=== PATIENT | male | born 1960 | race Caucasian/White ===

== ENCOUNTER 2021-06-08 06:58 | Inpatient (IN) ==
[2021-06-08] MEDS ORDERED: 0.9 % SODIUM CHLORIDE 1,000 ML IV ONE ×2 (07:03→09:34)
--- NOTE | 2021-06-08 07:45 | Emergency Department Note ---
HPI General Chief complaint: Weakness Stated complaint: Weakness Time Seen by Provider: 06/08/21 07:03 Source: EMS Mode of arrival: EMS Limitations: no limitations History of Present Illness HPI Narrative: Patient is a 60-year-old gentleman who arrives emergency department accompanied by his brother complaining of generalized weakness. History is provided by the patient and his brother as well as review of his mn dical records and his limited as the patient is a very vague historian. Patient dislocated his clavicle on the 12th of the month. He was seen at [facility] and the diagnosis was made. He was given follow-up with Dr. Del Rio but has not been able to follow-up yet. Ever since the injury, the patient has been having progressively worsening generalized weakness. He wa s seen at [facility] yesterday and discharged after symptomatic treatment for his clavicle pain. Today, he was feeling so weak he could not get off of the toilet this morning. His brother then called 911 and he was brought to the emergency department for further evaluation. Nothing seems to make his symptoms any better or worse. Related Data Allergies Allergy/AdvReac Type Severity Reaction Status Date / Time No Known Drug Allergies Allergy Unverified 06/08/21 06:58 Review of Systems ROS ROS Narrative: Narrative: All systems ED: reviewed and negative except as stated. Constitutional: Denies fever and chills Cardiovascular: Denies chest pain Respiratory: Denies shortness of breath and cough PFSH Narrative Patient History Narrative: Narrative: Medical/Surgical/Family History All Active Problems (Updated 06/08/21 @ 14:41 by Mandeep Rothman DO) Hypokalemia (Acute) Acute hyponatremia (Acute) Fever (Acute) QT prolongation (Acute) Social History Smoking Status: Current every day smoker Alcohol Intake Frequency: former alcohol drinker (Patient is very vague when describing his alcohol intake but states he has not had any alcohol in 3 or 4 days.) Substance Use: does not use Exam Narrative Narrative: I reviewed the vital signs. Gen -patient is awake and alert and in no acute distress. Patient appears disheveled. HEENT -head is atraumatic. There is no conjunctival pallor or scleral icterus. Mucous membranes are moist. CV -S1-S2 regular rate and rhythm. Peripheral pulses are palpable. There is no JVD. Resp -breathing is nonlabored. Lungs are clear to auscultation bilaterally. There is no cyanosis. GI - Abdomen is soft and nontender to palpation. There is no guarding or rebound tenderness. Derm -skin is warm and diaphoretic. There is no visible rash. MSK -there is edema and tenderness over the right clavicle with palpable deformity that feels consistent with an anterior clavicle dislocation. Psych -patient has a labile affect. The patient does not appear internally stimulated. Neuro -patient provides a vague but generally appropriate answers to questions. He has significant dysarthria that seems suggestive of alcohol intoxication. There is no aphasia. There is no facial muscular asymmetry. Muscle strength is 5 out of 5 in bilateral upper extremities and 4 out of 5 in bilateral lower extremities. Patient has difficulty comprehending more complex commands for cerebellar testing but ordination appears grossly intact. There is horizontal nystagmus. Extraocular motion is intact. Patient moves all present extremities equally. General Limitations: no limitations Course Vital Signs Vital signs: Vital Signs Temperature 97.4 F 06/08/21 06:59 Pulse Rate 90 06/08/21 06:59 Respiratory Rate 16 06/08/21 06:59 Blood Pressure 125/72 06/08/21 06:59 Pulse Oximetry (%) 98 06/08/21 06:59 Temperature 97.7 F 06/08/21 13:35 Pulse Rate 99 H 06/08/21 11:01 Respiratory Rate 22 06/08/21 14:01 Blood Pressure 104/58 06/08/21 14:01 Pulse Oximetry (%) 98 06/08/21 11:01 [facility] Narrative Medical decision making narrative: Patient presents with several days of generalized weakness. He is not of any focal findings or complaints concerning for ischemic stroke or other space-occupying lesion. Labs remarkable for significant hyponatremia as well as hypokalemia and a leukocytosis. Further conversation with his brother reveals that the patient drinks beer quite heavily which I think is the cause of his hyponatremia. I discussed the test results with the patient and his family. He is agreeable with the plan for hospital admission for gradual correction of his sodium. There was an extremely long wait for an inpatient bed so I did recheck his sodium after a liter of IV fluids been administered. This does not appear to be precipitously rising so we will continue gradual hydration in the emergency department. Patient does have a leukocytosis but no focal source of infection is obvious on exam or history. I considered the possibility of meningitis but he does not have a headache or display any nuchal rigidity on exam. I think the most likely source of his fever would be an occult pneumonia so we will treat empirically with Rocephin and closely monitor for other signs of infectious symptoms. I discussed the patient's history examination and diagnostic findings with Dr. Mendoza, who agrees with the plan of care and accepts admission. Critical care time I provided 35 minutes of critical care time. This was in addition to any separately billable procedures. The patient was was given fluids very judiciously to correct his hyponatremia and his response was closely monitored for signs of overzealous correction which could lead to central pontine myelinolysis. He was given IV potassium and magnesium to treat his hypokalemia in the setting of QT prolongation on his EKG in order to prevent cardiac dysrhythmia. The patient was closely monitored for response to treatment and stability of vital signs throughout their emergency department stay. Lab Data Lab results reviewed: Yes I reviewed the patient's lab results. Result diagrams: 06/08/21 07:51 06/08/21 07:51 Labs: Lab Results 06/08/21 06/08/21 06/08/21 Range/Units 07:35 07:50 07:50 WBC (4.5-11.0) K/mcL RBC (4.63-6.08) M/mcL Hgb (13.7-17.5) g/dL Hct (40.1-51.0) % POC Hct (41-55) % MCV (80.0-100.0) fL MCH (26.0-34.0) pg MCHC (31.0-36.0) g/dL RDW (11.5-14.5) % Plt Count (140-440) K/mcL MPV (7.4-10.4) fL Neut % (Auto) (38.0-78.0) % Lymph % (Auto) (15.5-49.0) % [place] % (Auto) (1.0-12.0) % Eos % (Auto) (0.0-7.0) % Baso % (Auto) (0.0-2.0) % Lymph # (Auto) (1.50-4.80) K/mcL [place] # (Auto) (0.10-0.90) K/mcL Eos # (Auto) (0.00-0.70) K/mcL Baso # (Auto) (0.00-0.30) K/mcL Absolute Neutrophils (1.80-8.00) K/mcL PT (11.9-14.5) sec INR (0.9-1.1) ABG Methemoglobin 0.3 L (0.4-1.5) % VBG pH 7.47 H (7.32-7.42) U VBG pCO2 37.4 L (41.0-51.0) mmHg VBG pO2 39.6 (25.0-40.0) mmHg VBG HCO3 26.7 (24.0-28.0) mmol/L VBG Total CO2 27.8 (25.0-29.0) mmol/L VBG O2 Saturation 67.9 (40.0-70.0) % VBG Base Excess 3 (-2-3) VBG Lactic Acid (0.5-2.0) mmol/L Carboxyhemoglobin 6.9 H (0.0-1.5) % THgb Total Hemoglobin 14.0 (13.5-16.5) gm/Dl POC Sodium (133-145) mEq/L Sodium (133-145) mmol/L POC Potassium (3.3-5.1) mEql/L Potassium (3.3-5.1) mmol/L POC Chloride (96-108) mEq/L Chloride (96-108) mmol/L Carbon Dioxide (22-30) mmol/L POC Total CO2 (22-30) mmol/L Anion Gap (8.0-16.0) POC BUN (6-20) mg/dL BUN (6-20) mg/dL Creatinine (0.7-1.2) mg/dL POC Creatinine (0.6-1.2) mg/dL GFR Calculation Glucose (70-105) mg/dL POC Glucose (70-105) mg/dL Calcium (8.6-10.4) mg/dL POC WB Ioniz Calcium (1.16-1.32) mmEq/L Total Bilirubin (0.1-1.0) mg/dL AST (<40) U/L ALT (<40) U/L Alkaline Phosphatase (39-117) U/L Ammonia (16-60) umol/L Total Protein (5.9-8.4) gm/dL Albumin (3.2-5.2) gm/dL Globulin (2.2-3.7) gm/dL Albumin/Globulin Ratio (1.0-2.3) Urine Color Urine Appearance (Clear) Urine pH (5.0-9.0) Ur Specific [place] (1.000-1.035) Urine Protein (Negative) mg/dL Urine Glucose (UA) (Negative) mg/dL Urine Ketones (Negative) mg/dL Urine Occult Blood (Negative) mg/dL Urine Nitrate (Negative) Urine Bilirubin (Negative) mg/dL Urine Urobilinogen mg/dL Ur Leukocyte Esterase (Negative) /ug Urine RBC (0-3) /hpf Urine WBC (0-4) /hpf Ur Squamous Epith Cells (0-4) /hpf Ur Transition Epith Cell (0-2) /hpf Urine Bacteria (0) /hpf Urine Mucus (None) /hpf Ur Culture Indicated? Salicylates < 0.3 mg/dL Acetaminophen ug/mL Ethyl Alcohol < 0.010 (<0.010) gm/dL 06/08/21 06/08/21 06/08/21 Range/Units 07:50 07:50 07:51 WBC 28.6 H (4.5-11.0) K/mcL RBC 4.29 L (4.63-6.08) M/mcL Hgb 14.5 (13.7-17.5) g/dL Hct 38.9 L (40.1-51.0) % POC Hct (41-55) % MCV 90.7 (80.0-100.0) fL MCH 33.8 (26.0-34.0) pg MCHC 37.3 H (31.0-36.0) g/dL RDW 12.4 (11.5-14.5) % Plt Count 202 (140-440) K/mcL MPV 9.9 (7.4-10.4) fL Neut % (Auto) 87.1 H (38.0-78.0) % Lymph % (Auto) 3.5 L (15.5-49.0) % [place] % (Auto) 9.3 (1.0-12.0) % Eos % (Auto) 0 (0.0-7.0) % Baso % (Auto) 0.1 (0.0-2.0) % Lymph # (Auto) 1.01 L (1.50-4.80) K/mcL [place] # (Auto) 2.65 H (0.10-0.90) K/mcL Eos # (Auto) 0.01 (0.00-0.70) K/mcL Baso # (Auto) 0.03 (0.00-0.30) K/mcL Absolute Neutrophils 24.92 H (1.80-8.00) K/mcL PT 14.4 (11.9-14.5) sec INR 1.1 (0.9-1.1) ABG Methemoglobin (0.4-1.5) % VBG pH (7.32-7.42) U VBG pCO2 (41.0-51.0) mmHg VBG pO2 (25.0-40.0) mmHg VBG HCO3 (24.0-28.0) mmol/L VBG Total CO2 (25.0-29.0) mmol/L VBG O2 Saturation (40.0-70.0) % VBG Base Excess (-2-3) VBG Lactic Acid (0.5-2.0) mmol/L Carboxyhemoglobin (0.0-1.5) % THgb Total Hemoglobin (13.5-16.5) gm/Dl POC Sodium (133-145) mEq/L Sodium (133-145) mmol/L POC Potassium (3.3-5.1) mEql/L Potassium (3.3-5.1) mmol/L POC Chloride (96-108) mEq/L Chloride (96-108) mmol/L Carbon Dioxide (22-30) mmol/L POC Total CO2 (22-30) mmol/L Anion Gap (8.0-16.0) POC BUN (6-20) mg/dL BUN (6-20) mg/dL Creatinine (0.7-1.2) mg/dL POC Creatinine (0.6-1.2) mg/dL GFR Calculation Glucose (70-105) mg/dL POC Glucose (70-105) mg/dL Calcium (8.6-10.4) mg/dL POC WB Ioniz Calcium (1.16-1.32) mmEq/L Total Bilirubin (0.1-1.0) mg/dL AST (<40) U/L ALT (<40) U/L Alkaline Phosphatase (39-117) U/L Ammonia 11 L (16-60) umol/L Total Protein (5.9-8.4) gm/dL Albumin (3.2-5.2) gm/dL Globulin (2.2-3.7) gm/dL Albumin/Globulin Ratio (1.0-2.3) Urine Color Urine Appearance (Clear) Urine pH (5.0-9.0) Ur Specific [place] (1.000-1.035) Urine Protein (Negative) mg/dL Urine Glucose (UA) (Negative) mg/dL Urine Ketones (Negative) mg/dL Urine Occult Blood (Negative) mg/dL Urine Nitrate (Negative) Urine Bilirubin (Negative) mg/dL Urine Urobilinogen mg/dL Ur Leukocyte Esterase (Negative) /ug Urine RBC (0-3) /hpf Urine WBC (0-4) /hpf Ur Squamous Epith Cells (0-4) /hpf Ur Transition Epith Cell (0-2) /hpf Urine Bacteria (0) /hpf Urine Mucus (None) /hpf Ur Culture Indicated? Salicylates mg/dL Acetaminophen ug/mL Ethyl Alcohol (<0.010) gm/dL 06/08/21 06/08/21 06/08/21 Range/Units 07:51 07:51 07:51 WBC (4.5-11.0) K/mcL RBC (4.63-6.08) M/mcL Hgb (13.7-17.5) g/dL Hct (40.1-51.0) % POC Hct 47 (41-55) % MCV (80.0-100.0) fL MCH (26.0-34.0) pg MCHC (31.0-36.0) g/dL RDW (11.5-14.5) % Plt Count (140-440) K/mcL MPV (7.4-10.4) fL Neut % (Auto) (38.0-78.0) % Lymph % (Auto) (15.5-49.0) % [place] % (Auto) (1.0-12.0) % Eos % (Auto) (0.0-7.0) % Baso % (Auto) (0.0-2.0) % Lymph # (Auto) (1.50-4.80) K/mcL [place] # (Auto) (0.10-0.90) K/mcL Eos # (Auto) (0.00-0.70) K/mcL Baso # (Auto) (0.00-0.30) K/mcL Absolute Neutrophils (1.80-8.00) K/mcL PT (11.9-14.5) sec INR (0.9-1.1) ABG Methemoglobin (0.4-1.5) % VBG pH (7.32-7.42) U VBG pCO2 (41.0-51.0) mmHg VBG pO2 (25.0-40.0) mmHg VBG HCO3 (24.0-28.0) mmol/L VBG Total CO2 (25.0-29.0) mmol/L VBG O2 Saturation (40.0-70.0) % VBG Base Excess (-2-3) VBG Lactic Acid 2.4 H (0.5-2.0) mmol/L Carboxyhemoglobin (0.0-1.5) % THgb Total Hemoglobin (13.5-16.5) gm/Dl POC Sodium 120 L (133-145) mEq/L Sodium 119 L* (133-145) mmol/L POC Potassium 3.1 L (3.3-5.1) mEql/L Potassium 3.2 L (3.3-5.1) mmol/L POC Chloride 82 L (96-108) mEq/L Chloride 80 L (96-108) mmol/L Carbon Dioxide 26 (22-30) mmol/L POC Total CO2 25 (22-30) mmol/L Anion Gap 13.0 (8.0-16.0) POC BUN 43 H (6-20) mg/dL BUN 42 H (6-20) mg/dL Creatinine 1.0 (0.7-1.2) mg/dL POC Creatinine 0.9 (0.6-1.2) mg/dL GFR Calculation 81 Glucose 120 H (70-105) mg/dL POC Glucose 121 H (70-105) mg/dL Calcium 8.1 L (8.6-10.4) mg/dL POC WB Ioniz Calcium 0.92 L (1.16-1.32) mmEq/L Total Bilirubin 1.7 H (0.1-1.0) mg/dL AST 136 H (<40) U/L ALT 74 H (<40) U/L Alkaline Phosphatase 122 H (39-117) U/L Ammonia (16-60) umol/L Total Protein 6.3 (5.9-8.4) gm/dL Albumin 2.2 L (3.2-5.2) gm/dL Globulin 4.1 H (2.2-3.7) gm/dL Albumin/Globulin Ratio 0.5 L (1.0-2.3) Urine Color Urine Appearance (Clear) Urine pH (5.0-9.0) Ur Specific [place] (1.000-1.035) Urine Protein (Negative) mg/dL Urine Glucose (UA) (Negative) mg/dL Urine Ketones (Negative) mg/dL Urine Occult Blood (Negative) mg/dL Urine Nitrate (Negative) Urine Bilirubin (Negative) mg/dL Urine Urobilinogen mg/dL Ur Leukocyte Esterase (Negative) /ug Urine RBC (0-3) /hpf Urine WBC (0-4) /hpf Ur Squamous Epith Cells (0-4) /hpf Ur Transition Epith Cell (0-2) /hpf Urine Bacteria (0) /hpf Urine Mucus (None) /hpf Ur Culture Indicated? Salicylates mg/dL Acetaminophen < 5.0 ug/mL Ethyl Alcohol (<0.010) gm/dL 06/08/21 06/08/21 06/08/21 Range/Units 11:00 12:09 13:32 WBC (4.5-11.0) K/mcL RBC (4.63-6.08) M/mcL Hgb (13.7-17.5) g/dL Hct (40.1-51.0) % POC Hct 45 38 L (41-55) % MCV (80.0-100.0) fL MCH (26.0-34.0) pg MCHC (31.0-36.0) g/dL RDW (11.5-14.5) % Plt Count (140-440) K/mcL MPV (7.4-10.4) fL Neut % (Auto) (38.0-78.0) % Lymph % (Auto) (15.5-49.0) % [place] % (Auto) (1.0-12.0) % Eos % (Auto) (0.0-7.0) % Baso % (Auto) (0.0-2.0) % Lymph # (Auto) (1.50-4.80) K/mcL [place] # (Auto) (0.10-0.90) K/mcL Eos # (Auto) (0.00-0.70) K/mcL Baso # (Auto) (0.00-0.30) K/mcL Absolute Neutrophils (1.80-8.00) K/mcL PT (11.9-14.5) sec INR (0.9-1.1) ABG Methemoglobin (0.4-1.5) % VBG pH (7.32-7.42) U VBG pCO2 (41.0-51.0) mmHg VBG pO2 (25.0-40.0) mmHg VBG HCO3 (24.0-28.0) mmol/L VBG Total CO2 (25.0-29.0) mmol/L VBG O2 Saturation (40.0-70.0) % VBG Base Excess (-2-3) VBG Lactic Acid (0.5-2.0) mmol/L Carboxyhemoglobin (0.0-1.5) % THgb Total Hemoglobin (13.5-16.5) gm/Dl POC Sodium 122 L 123 L (133-145) mEq/L Sodium (133-145) mmol/L POC Potassium 3.1 L 2.9 L* (3.3-5.1) mEql/L Potassium (3.3-5.1) mmol/L POC Chloride 87 L 86 L (96-108) mEq/L Chloride (96-108) mmol/L Carbon Dioxide (22-30) mmol/L POC Total CO2 23 22 (22-30) mmol/L Anion Gap (8.0-16.0) POC BUN 38 H 36 H (6-20) mg/dL BUN (6-20) mg/dL Creatinine (0.7-1.2) mg/dL POC Creatinine 0.7 0.8 (0.6-1.2) mg/dL GFR Calculation Glucose (70-105) mg/dL POC Glucose 109 H 118 H (70-105) mg/dL Calcium (8.6-10.4) mg/dL POC WB Ioniz Calcium 0.90 L 0.97 L (1.16-1.32) mmEq/L Total Bilirubin (0.1-1.0) mg/dL AST (<40) U/L ALT (<40) U/L Alkaline Phosphatase (39-117) U/L Ammonia (16-60) umol/L Total Protein (5.9-8.4) gm/dL Albumin (3.2-5.2) gm/dL Globulin (2.2-3.7) gm/dL Albumin/Globulin Ratio (1.0-2.3) Urine Color Rachel Urine Appearance Hazy A (Clear) Urine pH 6.0 (5.0-9.0) Ur Specific [place] 1.019 (1.000-1.035) Urine Protein 30 A (Negative) mg/dL Urine Glucose (UA) Negative (Negative) mg/dL Urine Ketones Negative (Negative) mg/dL Urine Occult Blood 0.20 (Negative) mg/dL Urine Nitrate Negative (Negative) Urine Bilirubin Negative (Negative) mg/dL Urine Urobilinogen 4.0 A mg/dL Ur Leukocyte Esterase 75 A (Negative) /ug Urine RBC 3 (0-3) /hpf Urine WBC 39 H (0-4) /hpf Ur Squamous Epith Cells < 1 (0-4) /hpf Ur Transition Epith Cell < 1 (0-2) /hpf Urine Bacteria None (0) /hpf Urine Mucus Few A (None) /hpf Ur Culture Indicated? yes Salicylates mg/dL Acetaminophen ug/mL Ethyl Alcohol (<0.010) gm/dL ED POC Tests ED POC Tests: ROWENA - SARS Antigen Negative EKG Data EKG #1: EKG attestation: Yes I reviewed and interpreted this EKG. EKG results narrative: EKG performed at 7:29 AM: Sinus rhythm, rate 92. Normal P wave morphology. Nonspecific interventricular conduction delay. T waves are diffusely flattened. No ST segment deviation. Normal ME duration. QTc is slightly prolonged at 508. No old EKG immediately available for comparison. EKG was interpreted by me. Discharge Plan Patient/Caregiver Discharge Instructions Pt seen by SERVICE OR WORK DISPATCHER/PA only: No Clinical Impression: Hypokalemia, Acute hyponatremia, Fever, QT prolongation Patient Disposition: Xfer As Inpt ([facility]) Condition: Fair Follow up with: No,PCP [Primary Care Provider] -
[2021-06-08 08:05] LABS: POC Blood Urea Nitrogen 43 mg/dL (6-20); POC CO2 25 mmol/L (22-30); POC Calcium, Ionized 0.92 mmEq/L (1.16-1.32); POC Chloride 82 mEq/L (96-108); POC Creatinine 0.9 mg/dL (0.6-1.2); POC Glucose, Random 121 mg/dL (70-105); POC Hematocrit 47 % (41-55); POC Potassium 3.1 mEql/L (3.3-5.1); POC Sodium 120 mEq/L (133-145)
[2021-06-08 08:06] LABS: ABG Methemoglobin 0.3 % (0.4-1.5); VBG Base Excess 3 (-2-3); VBG HCO3 26.7 mmol/L (24.0-28.0); VBG Oxygen Saturation 67.9 % (40.0-70.0); VBG PCO2 37.4 mmHg (41.0-51.0); VBG PH 7.47 U (7.32-7.42); VBG PO2 39.6 mmHg (25.0-40.0); VBG Total CO2 27.8 mmol/L (25.0-29.0)
[2021-06-08 09:07] LABS: Alcohol, Blood < 10.0 mg/dL; Alcohol,Blood < 0.010 gm/dL (<0.010)
[2021-06-08 09:08] LABS: INR 1.1 (0.9-1.1); Prothrombin Time 14.4 sec (11.9-14.5)
[2021-06-08 09:09] LABS: Basophils # (Auto) 0.03 K/mcL (0.00-0.30); Basophils % (Auto) 0.1 % (0.0-2.0); Eosinophils # (Auto) 0.01 K/mcL (0.00-0.70); Eosinophils % (Auto) 0 % (0.0-7.0); Hematocrit 38.9 % (40.1-51.0); Hemoglobin 14.5 g/dL (13.7-17.5); Lymphocytes # (Auto) 1.01 K/mcL (1.50-4.80); Lymphocytes % (Auto) 3.5 % (15.5-49.0); Mean Cell Volume 90.7 fL (80.0-100.0); Mean Corpuscular HGB Conc 37.3 g/dL (31.0-36.0); Mean Platelet Volume 9.9 fL (7.4-10.4); Monocytes # (Auto) 2.65 K/mcL (0.10-0.90); Monocytes % (Auto) 9.3 % (1.0-12.0); Platelet Count 202 K/mcL (140-440); RBC 4.29 M/mcL (4.63-6.08); Red Cell Distribution Width 12.4 % (11.5-14.5); WBC 28.6 K/mcL (4.5-11.0)
[2021-06-08 09:18] LABS: ALT/SGPT 74 U/L (<40); AST/SGOT 136 U/L (<40); Albumin 2.2 gm/dL (3.2-5.2); Albumin/Globulin Ratio 0.5 (1.0-2.3); Alkaline Phosphatase 122 U/L (39-117); Bilirubin,Total 1.7 mg/dL (0.1-1.0); Blood Urea Nitrogen 42 mg/dL (6-20); Calcium 8.1 mg/dL (8.6-10.4); Carbon Dioxide 26 mmol/L (22-30); Chloride 80 mmol/L (96-108); Globulin 4.1 gm/dL (2.2-3.7); Glomerular Filtration Rate 81; Glucose 120 mg/dL (70-105)
--- NOTE | 2021-06-08 09:41 | XRay Report ---
CLINICAL INFORMATION: Altered mental status COMPARISON: None. TECHNIQUE: PA and Lateral views FINDINGS: The heart size, mediastinum and pulmonary vessels are unremarkable. Mild subglottic narrowing is noted. The lungs are clear. There are no effusions. The bones and soft tissues are within normal limits. IMPRESSION: Mild subglottic narrowing. This could indicate mild fibrosis or inflammation Interpreted and Authenticated by: Usama Zuñiga 06/08/21
--- NOTE | 2021-06-08 09:52 | Cat Scan Report ---
CLINICAL INFORMATION: Confusion COMPARISON: None. TECHNIQUE: 2.5 mm helical slices were obtained in the skull base to vertex. Following reconstruction, axial reformatted images were reviewed at bone and parenchymal windows. The exam was performed using radiation dose optimization techniques including, but not limited to, automated exposure control, adjustment of the mA and/or kV according to patient size and use of iterative reconstruction technique. FINDINGS: The ventricles, sulci, fissures, and cisterns are symmetrically enlarged compatible with mild age-related atrophy. No extra-axial fluid collections are identified. Mild patchy chronic ischemic changes, in the deep cerebral white matter, are expected for age. There is no hemorrhage, mass effect, or edema. Bone windows show no osseous abnormality. IMPRESSION: Mild atrophy and chronic ischemic changes in the deep cerebral white matter-expected for age. No acute findings Interpreted and Authenticated by: Usama Zuñiga 06/08/21
[2021-06-08 11:14] LABS: POC Blood Urea Nitrogen 38 mg/dL (6-20); POC CO2 23 mmol/L (22-30); POC Chloride 87 mEq/L (96-108); POC Creatinine 0.7 mg/dL (0.6-1.2); POC Glucose, Random 109 mg/dL (70-105); POC Hematocrit 45 % (41-55); POC Potassium 3.1 mEql/L (3.3-5.1); POC Sodium 122 mEq/L (133-145)
[2021-06-08] MEDS ORDERED: ACETAMINOPHEN 325 MG TABLET PO ONE (12:01)
[2021-06-08] MEDS ORDERED: cefTRIAXone 1 GM VIAL IV ONE (12:01)
[2021-06-08 12:40] LABS: Neutrophils % (Auto) 87.1 % (38.0-78.0)
[2021-06-08 13:47] LABS: POC Blood Urea Nitrogen 36 mg/dL (6-20); POC CO2 22 mmol/L (22-30); POC Calcium, Ionized 0.97 mmEq/L (1.16-1.32); POC Chloride 86 mEq/L (96-108); POC Creatinine 0.8 mg/dL (0.6-1.2); POC Glucose, Random 118 mg/dL (70-105); POC Hematocrit 38 % (41-55); POC Potassium 2.9 mEql/L (3.3-5.1); POC Sodium 123 mEq/L (133-145)
[2021-06-08] MEDS ORDERED: POTASSIUM CHLORIDE 40 MEQ in DEXTROSE 5% IN WATER 500 ML IV ONE ×2 (13:51→18:17)
[2021-06-08] MEDS ORDERED: POTASSIUM CHLORIDE 20 MEQ TABLET PO ONE (13:51)
[2021-06-08 13:55] LABS: Appearance,Urine HAZY (Clear); Bilirubin,Urine Negative (Negative); Color,Urine AMBER; Culture Indicated,Urine yes; Glucose,Urine (UA) Negative (Negative); Ketones,Urine Negative (Negative); Leukocyte Esterase,Urine 75 /ug (Negative); Mucus,Urine FEW /hpf; Nitrate,Urine Negative (Negative); Protein,Urine 30 mg/dL (Negative); Specific Gravity,Urine 1.019 (1.000-1.035); Urine RBC 3 /hpf (0-3); Urine Squamous Epithelial Cell < 1 /hpf (0-4); Urine Transitional Epi Cells < 1 /hpf (0-2); Urine WBC 39 /hpf (0-4)
[2021-06-08] MEDS ORDERED: POTASSIUM CHLORIDE 20 MEQ/10 ML VIAL IV ONE (14:00)
[2021-06-08] MEDS ORDERED: MAGNESIUM SULFATE 8.12 MEQ in DEXTROSE 5% IN WATER 50 ML IV ONE (14:15)
[2021-06-08] MEDS: MAGNESIUM SULFATE 8.12 MEQ/2 ML VIAL IV ONE ×2 (14:26)
--- NOTE | 2021-06-08 15:19 | Internal Med History&Physical ---
HPI History of Present Illness Patient information: Note initiated : 06/08/21 at 3:18 pm Service Date, if different from initiated Date: [] Patient: Saman Olson a 60 y/o M admitted on for Weakness. Chief Complaint: [Hyponatremia and UTI ] History of present illness: Mr. Olson is a 60 year old M history of chronic alcoholism and recent trauma of his right clavicle with resultant right clavicular dislocations, was brought by family to the ER because of general body weakness. Patient has a injury with right clavicular dislocations on May 27, 2021. Patient was being brought to [facility] yesterday for associated clavicular pain and he was being discharged home the same day from the ER. Today, patient fell for a week and he was unable to get up from toilet. As a result, patient was being brought by family members to our ER for further evaluation and treatment. His father stated that patient has a long history of alcoholism although in the past 3 to 4 days patient has not been consuming any alcohol at all. Vital signs upon ER presentation with normal limits. Labs significant for leukocytosis with WBC 28 as well as hyponatremia with sodium level 120 with unknown baseline. Serum alcohol level undetectable. Urinalysis suggest the presence of urinary tract infections. Chest x-ray does not reveal any signs of pneumonia. CT of the head no acute intracranial abnormalities. There is no focal neurological deficit. Constitutional Constitutional: Present weakness; Absent chills, excessive sweating, fatigue and fever(s) EENT Eyes: Absent blurry vision, change in vision, loss of vision and other visual disturbances Ears: Absent decreased hearing and tinnitus Nose, mouth and throat: Absent abnormal hearing, dry mouth, headache(s), nasal congestion and sore throat Cardiovascular Cardiovascular: Absent chest pain, chest pain at rest, edema, irregular heart rh ythm and palpatations Respiratory Respiratory: Absent cough, dyspnea and wheezing Gastrointestinal Gastrointestinal: Absent abdominal pain, constipation, diarrhea, nausea and vomiting Musculoskeletal Musculoskeletal: Absent back pain, deformity, limited range of motion, muscle cramps, muscle weakness and numbness Additional comments: Right clavicle pain Integumentary Integumentary: Absent lesions, rash and wounds Neurological Neurological: Absent focal weakness, headache(s) and numbness Psychiatric Psychiatric: Absent anxiety, depression and hallucinations PFSH PFSH All Active Problems (Updated 06/08/21 @ 15:23 by Sergio Mendoza MD) Dislocation of clavicle, right, closed (Acute) UTI (urinary tract infection) (Acute) Hypokalemia (Acute) Acute hyponatremia (Acute) Fever (Acute) QT prolongation (Acute) Social History alcohol intake frequency: former alcohol drinker (Patient is very vague when describing his alcohol intake but states he has not had any alcohol in 3 or 4 days.) substance use type: does not use MEDS/ALLERGIES Home Medications and Allergies Allergies Allergy/AdvReac Type Severity Reaction Status Date / Time No Known Drug Allergies Allergy Unverified 06/08/21 06:58 EXAM Constitutional Vitals: Temp Pulse Resp BP Pulse Ox 36.5 C 85 22 107/64 93 06/08/21 13:35 06/08/21 14:46 06/08/21 14:46 06/08/21 14:46 06/08/21 14:46 General appearance: cooperative and no acute distress Head Head exam: Present atraumatic and normocephalic Eye Eye exam: Present EOMI and PERRL ENT ENT exam: Present mucous membranes moist, normal exam and normal external ear exam Neck Neck exam: Present normal inspection; Absent lymphadenopathy, tenderness and thyromegaly Respiratory Respiratory exam: Absent accessory muscle use, respiratory distress and wheezes Cardiovascular Cardiovascular exam: Present normal rate and rhythm; Absent JVD GI/Abdominal GI/Abdominal exam: Present normal bowel sounds and soft; Absent organomegaly and tenderness Rectal Rectal exam: Present deferred Extremities Exam Extremities exam: Present full ROM, normal capillary refill and normal inspection; Absent tenderness Neurological Exam Neurological exam: Present alert, CN II-XII intact and oriented X3; Absent motor sensory deficit Psychiatric Psychiatric exam: Present normal affect and normal mood; Absent anxious and depressed Skin Skin exam: Present dry and intact Additional findings Additional findings: MSK: Erythema, swelling, and tenderness to palpation right proximal clavicle. DATA Data Completed and Pending Labs: Labs from last 24 hours 06/08/21 06/08/21 06/08/21 13:32 12:09 11:00 WBC RBC Hgb Hct POC Hct 38 L 45 MCV MCH MCHC RDW Plt Count MPV Neut % (Auto) Lymph % (Auto) [place] % (Auto) Eos % (Auto) Baso % (Auto) Lymph # (Auto) [place] # (Auto) Eos # (Auto) Baso # (Auto) Absolute Neutrophils PT INR ABG Methemoglobin VBG pH VBG pCO2 VBG pO2 VBG HCO3 VBG Total CO2 VBG O2 Saturation VBG Base Excess VBG Lactic Acid Carboxyhemoglobin Total Hemoglobin POC Sodium 123 L 122 L Sodium POC Potassium 2.9 L* 3.1 L Potassium POC Chloride 86 L 87 L Chloride Carbon Dioxide POC Total CO2 22 23 Anion Gap POC BUN 36 H 38 H BUN Creatinine POC Creatinine 0.8 0.7 GFR Calculation Glucose POC Glucose 118 H 109 H Calcium POC WB Ioniz Calcium 0.97 L 0.90 L Total Bilirubin AST ALT Alkaline Phosphatase Ammonia Total Protein Albumin Globulin Albumin/Globulin Ratio Urine Color Rachel Urine Appearance Hazy A Urine pH 6.0 Ur Specific [place] 1.019 Urine Protein 30 A Urine Glucose (UA) Negative Urine Ketones Negative Urine Occult Blood 0.20 Urine Nitrate Negative Urine Bilirubin Negative Urine Urobilinogen 4.0 A Ur Leukocyte Esterase 75 A Urine RBC 3 Urine WBC 39 H Ur Squamous Epith Cells < 1 Ur Transition Epith Cell < 1 Urine Bacteria None Urine Mucus Few A Ur Culture Indicated? yes Salicylates Acetaminophen Ethyl Alcohol 06/08/21 06/08/21 06/08/21 07:51 07:51 07:51 WBC RBC Hgb Hct POC Hct 47 MCV MCH MCHC RDW Plt Count MPV Neut % (Auto) Lymph % (Auto) [place] % (Auto) Eos % (Auto) Baso % (Auto) Lymph # (Auto) [place] # (Auto) Eos # (Auto) Baso # (Auto) Absolute Neutrophils PT INR ABG Methemoglobin VBG pH VBG pCO2 VBG pO2 VBG HCO3 VBG Total CO2 VBG O2 Saturation VBG Base Excess VBG Lactic Acid 2.4 H Carboxyhemoglobin Total Hemoglobin POC Sodium 120 L Sodium 119 L* POC Potassium 3.1 L Potassium 3.2 L POC Chloride 82 L Chloride 80 L Carbon Dioxide 26 POC Total CO2 25 Anion Gap 13.0 POC BUN 43 H BUN 42 H Creatinine 1.0 POC Creatinine 0.9 GFR Calculation 81 Glucose 120 H POC Glucose 121 H Calcium 8.1 L POC WB Ioniz Calcium 0.92 L Total Bilirubin 1.7 H AST 136 H ALT 74 H Alkaline Phosphatase 122 H Ammonia Total Protein 6.3 Albumin 2.2 L Globulin 4.1 H Albumin/Globulin Ratio 0.5 L Urine Color Urine Appearance Urine pH Ur Specific [place] Urine Protein Urine Glucose (UA) Urine Ketones Urine Occult Blood Urine Nitrate Urine Bilirubin Urine Urobilinogen Ur Leukocyte Esterase Urine RBC Urine WBC Ur Squamous Epith Cells Ur Transition Epith Cell Urine Bacteria Urine Mucus Ur Culture Indicated? Salicylates Acetaminophen < 5.0 Ethyl Alcohol 06/08/21 06/08/21 06/08/21 07:51 07:50 07:50 WBC 28.6 H RBC 4.29 L Hgb 14.5 Hct 38.9 L POC Hct MCV 90.7 MCH 33.8 MCHC 37.3 H RDW 12.4 Plt Count 202 MPV 9.9 Neut % (Auto) 87.1 H Lymph % (Auto) 3.5 L [place] % (Auto) 9.3 Eos % (Auto) 0 Baso % (Auto) 0.1 Lymph # (Auto) 1.01 L [place] # (Auto) 2.65 H Eos # (Auto) 0.01 Baso # (Auto) 0.03 Absolute Neutrophils 24.92 H PT 14.4 INR 1.1 ABG Methemoglobin VBG pH VBG pCO2 VBG pO2 VBG HCO3 VBG Total CO2 VBG O2 Saturation VBG Base Excess VBG Lactic Acid Carboxyhemoglobin Total Hemoglobin POC Sodium Sodium POC Potassium Potassium POC Chloride Chloride Carbon Dioxide POC Total CO2 Anion Gap POC BUN BUN Creatinine POC Creatinine GFR Calculation Glucose POC Glucose Calcium POC WB Ioniz Calcium Total Bilirubin AST ALT Alkaline Phosphatase Ammonia 11 L Total Protein Albumin Globulin Albumin/Globulin Ratio Urine Color Urine Appearance Urine pH Ur Specific [place] Urine Protein Urine Glucose (UA) Urine Ketones Urine Occult Blood Urine Nitrate Urine Bilirubin Urine Urobilinogen Ur Leukocyte Esterase Urine RBC Urine WBC Ur Squamous Epith Cells Ur Transition Epith Cell Urine Bacteria Urine Mucus Ur Culture Indicated? Salicylates Acetaminophen Ethyl Alcohol 06/08/21 06/08/21 06/08/21 07:50 07:50 07:35 WBC RBC Hgb Hct POC Hct MCV MCH MCHC RDW Plt Count MPV Neut % (Auto) Lymph % (Auto) [place] % (Auto) Eos % (Auto) Baso % (Auto) Lymph # (Auto) [place] # (Auto) Eos # (Auto) Baso # (Auto) Absolute Neutrophils PT INR ABG Methemoglobin 0.3 L VBG pH 7.47 H VBG pCO2 37.4 L VBG pO2 39.6 VBG HCO3 26.7 VBG Total CO2 27.8 VBG O2 Saturation 67.9 VBG Base Excess 3 VBG Lactic Acid Carboxyhemoglobin 6.9 H Total Hemoglobin 14.0 POC Sodium Sodium POC Potassium Potassium POC Chloride Chloride Carbon Dioxide POC Total CO2 Anion Gap POC BUN BUN Creatinine POC Creatinine GFR Calculation Glucose POC Glucose Calcium POC WB Ioniz Calcium Total Bilirubin AST ALT Alkaline Phosphatase Ammonia Total Protein Albumin Globulin Albumin/Globulin Ratio Urine Color Urine Appearance Urine pH Ur Specific [place] Urine Protein Urine Glucose (UA) Urine Ketones Urine Occult Blood Urine Nitrate Urine Bilirubin Urine Urobilinogen Ur Leukocyte Esterase Urine RBC Urine WBC Ur Squamous Epith Cells Ur Transition Epith Cell Urine Bacteria Urine Mucus Ur Culture Indicated? Salicylates < 0.3 Acetaminophen Ethyl Alcohol < 0.010 A/P Assessment and plan (1) Hypokalemia: Status: Acute (2) Acute hyponatremia: Status: Acute (3) UTI (urinary tract infection): Status: Acute (4) Dislocation of clavicle, right, closed: Status: Acute Narrative A/P Narrative: Assessment and Plans: 1. Hyponatremia: Unknown baseline as well as chronicity. Likely secondary to chronic alcoholism Check TSH with reflexive free T4 Admit to inpatient med surg s/p 2L NS bolus in the ED, with serum sodium 120-->123, to be followed by NS@7 5cc/hr BMP q6hr to prevent overly rapid correction of hyponatremia to avoid neurological complications such as central pontine myelinolysis. Goal of correction 8-10 point/first 24 hours [employer] patient on quitting alcohol consumption Will keep an eye on symptoms of alcohol withdrawal and will start CIWA protocol if symptoms are noted 2. Leukocytosis: UA suggestive of UTI. CXR no signs of pneumonia Blood culture X2 Urine culture Rocephin Tylenol PRN fever cbc w/ auto diff in the morning to trend WBC 3. Hypokalemia: Potassium replacement protocol Will check CMP daily to trend serum potassium level and will repeat replacement as needed Also will check serum Mg level and will replace as needed as well 4. Right clavicular dislocation: Consult Orthopedics Dr. Del Rio, recs. appreciated Ibuprofen PRN mild pain Oxycodone PRN moderate pain GI ppx: not currently indicated DVT ppx: Lovenox Code status: Full Prognosis: guarded Disposition: inpatient med surg Time Spent With Patient Time: Total time spent is greater than 50% in coordination of care (as documented) at patient's floor/unit and/or counseling patient: Total time spent with greater than 50% in coordination of care (as documented) at patient's floor/unit and/or counseling patient:: 25 - 35 minutes
[2021-06-08] MEDS ORDERED: cefTRIAXone 1 GM in DEXTROSE 5% IN WATER 50 ML IV SCH (18:17)
[2021-06-08] MEDS ORDERED: ZOLPIDEM 5 MG TABLET PO PRN (18:17)
[2021-06-08] MEDS ORDERED: ONDANSETRON 4 MG/2 ML VIAL IV PRN (18:17)
[2021-06-08 19:40] LABS: Estimated Average Glucose(eAG) 97 mg/dL
[2021-06-08] MEDS: 0.9 % SODIUM CHLORIDE 1,000 ML IV SCH (19:57)
[2021-06-08 20:05] LABS: Blood Urea Nitrogen 33 mg/dL (6-20); Calcium 7.7 mg/dL (8.6-10.4); Carbon Dioxide 25 mmol/L (22-30); Chloride 87 mmol/L (96-108); Glomerular Filtration Rate 102; Glucose 121 mg/dL (70-105)
[2021-06-08] MEDS: 0.9 % SODIUM CHLORIDE 10 ML SYRINGE IV SCH ×3 (20:26→21:50)
[2021-06-08] MEDS: LORazepam 1 MG TABLET PO PRN (21:38)
[2021-06-08] MEDS: SENNOSIDES 1 TABLET PO SCH (21:38)
[2021-06-08] MEDS: DOCUSATE SODIUM 100 MG CAPSULE PO SCH (21:38)
[2021-06-08] MEDS: POTASSIUM CHLORIDE 20 MEQ, MAGNESIUM SULFATE 16.24 MEQ, THIAMINE 100 MG, MVI, ADULT NO.... IV SCH (21:42)
[2021-06-09] MEDS: LORazepam 1 MG TABLET PO PRN ×4 (01:46→21:05)
[2021-06-09] MEDS: ACETAMINOPHEN 325 MG TABLET PO PRN ×2 (01:47→12:23)
[2021-06-09] MEDS: 0.9 % SODIUM CHLORIDE 10 ML SYRINGE IV SCH ×5 (04:29→21:25)
[2021-06-09 07:01] LABS: Basophils % (Auto) 0.6 % (0.0-2.0); Eosinophils # (Auto) 0.01 K/mcL (0.00-0.70); Eosinophils % (Auto) 0.1 % (0.0-7.0); Hematocrit 36.4 % (40.1-51.0); Hemoglobin 13.3 g/dL (13.7-17.5); Lymphocytes # (Auto) 1.63 K/mcL (1.50-4.80); Lymphocytes % (Auto) 9.1 % (15.5-49.0); Mean Cell Volume 92.2 fL (80.0-100.0); Mean Corpuscular HGB Conc 36.5 g/dL (31.0-36.0); Mean Platelet Volume 9.4 fL (7.4-10.4); Monocytes # (Auto) 1.92 K/mcL (0.10-0.90); Monocytes % (Auto) 10.7 % (1.0-12.0); Neutrophils % (Auto) 79.5 % (38.0-78.0); Platelet Count 214 K/mcL (140-440); RBC 3.95 M/mcL (4.63-6.08); Red Cell Distribution Width 13.1 % (11.5-14.5); WBC 17.9 K/mcL (4.5-11.0)
[2021-06-09] MEDS: oxyCODONE HCL 5 MG TABLET PO PRN (07:08)
[2021-06-09] MEDS: POTASSIUM CHLORIDE 20 MEQ, MAGNESIUM SULFATE 16.24 MEQ, THIAMINE 100 MG, MVI, ADULT NO.... IV SCH (07:19)
[2021-06-09] MEDS: 0.9 % SODIUM CHLORIDE 1,000 ML IV SCH ×2 (07:19→21:05)
[2021-06-09] MEDS ORDERED: POTASSIUM CHLORIDE 20 MEQ, MAGNESIUM SULFATE 16.24 MEQ, THIAMINE 100 MG, MVI, ADULT NO.... IV SCH ×2 (08:00→18:00)
[2021-06-09 08:07] LABS: ALT/SGPT 60 U/L (<40); AST/SGOT 114 U/L (<40); Albumin 1.6 gm/dL (3.2-5.2); Albumin/Globulin Ratio 0.4 (1.0-2.3); Alkaline Phosphatase 93 U/L (39-117); Bilirubin,Total 0.9 mg/dL (0.1-1.0); Blood Urea Nitrogen 30 mg/dL (6-20); Calcium 7.4 mg/dL (8.6-10.4); Carbon Dioxide 22 mmol/L (22-30); Chloride 90 mmol/L (96-108); Globulin 3.9 gm/dL (2.2-3.7); Glomerular Filtration Rate 109; Glucose 95 mg/dL (70-105)
[2021-06-09] MEDS ORDERED: cefTRIAXone 1 GM in DEXTROSE 5% IN WATER 50 ML IV SCH (09:00)
--- NOTE | 2021-06-09 10:32 | Orthopedic Consult Note ---
HPI Data of Consult Consult date: 06/09/21 Primary Care Provider: PCP No Consult Narrative Patient Information: Note initiated : 06/09/21 at 10:27 am Service Date, if different from initiated Date: [] Patient: Saman Olson 60 y/o M admitted on 06/08/21 for Weakness. Chief Complaint: [] Patient was referred to [facility] and was schedule to see Dr. Dailey's PA on 06/04 and appears he missed that appt. cc:: CC: Sergio Mendoza MD PFSH PFSH All Active Problems (Updated 06/09/21 @ 10:29 by Johan Del Rio MD) Dislocation of clavicle, right, closed (Acute) UTI (urinary tract infection) (Acute) Hypokalemia (Acute) Acute hyponatremia (Acute) Fever (Acute) QT prolongation (Acute) Medical History (Updated 06/09/21 @ 10:29 by Johan Del Rio MD) Dislocation of clavicle, right, closed Social History alcohol intake frequency: former alcohol drinker (Patient is very vague when describing his alcohol intake but states he has not had any alcohol in 3 or 4 days.) substance use type: does not use MEDS/ALLERGIES Home Medications and Allergies Home Medications Medication Instructions Recorded Confirmed Type No Known Home Meds 06/08/21 06/08/21 History Allergies Allergy/AdvReac Type Severity Reaction Status Date / Time No Known Drug Allergies Allergy Unverified 06/08/21 06:58 Physical Examination Narrative Narrative: Narrative: A/P Narrative A/P Narrative: Injury 2 weeks ago on 05/27. By referral to [facility] he had a sternoclavicular dislocation. I reviewed xrays and these are all negative. There is nothing surgically emergent at this time. He can weight bear and do range of motion as tolerated by pain without restriction and recommend followup with [facility] as an outpatient as previously planned.
[2021-06-09] MEDS: ENOXAPARIN 40 MG/0.4 ML SYRINGE SQ SCH (10:38)
[2021-06-09] MEDS: DOCUSATE SODIUM 100 MG CAPSULE PO SCH ×2 (10:38→21:05)
[2021-06-09] MEDS: cefTRIAXone 1 GM VIAL IV SCH (10:39)
[2021-06-09] MEDS ORDERED: METOPROLOL TARTRATE 5 MG/5 ML VIAL IV PRN (12:09)
[2021-06-09] MEDS: METOPROLOL TARTRATE 5 MG/5 ML VIAL IV SCH ×11 (13:10→23:44)
--- NOTE | 2021-06-09 14:51 | Internal Med Progress Note ---
SUBJECTIVE Subjective Patient information: Note initiated : 06/09/21 at 2:44 pm Service Date, if different from initiated Date: [] Patient: Saman Olson 60 y/o M admitted on 06/08/21 for Weakness. Chief Complaint: [Delirium tremens, hyponatremia, and UTI] History of present illness: Mr. Olson is a 60 year old M history of chronic alcoholism and recent trauma of his right clavicle with resultant right clavicular dislocations, was brought by family to the ER because of general body weakness. Patient has a injury with right clavicular dislocations on May 27, 2021. Patient was being brought to [facility] yesterday for associated clavicular pain and he was being discharged home the same day from the ER. Today, patient fell for a week and he was unable to get up from toilet. As a result, patient was being brought by family members to our ER for further evaluation and treatment. His father stated that patient has a long history of alcoholism although in the past 3 to 4 days patient has not been consuming any alcohol at all. Vital signs upon ER presentation with normal limits. Labs significant for leukocytosis with WBC 28 as well as hyponatremia with sodium level 120 with unknown baseline. Serum alcohol level undetectable. Urinalysis suggest the presence of urinary tract infections. Chest x-ray does not reveal any signs of pneumonia. CT of the head no acute intracranial abnormalities. There is no focal neurological deficit. 06/09: Started to show symptoms of alcohol withdrawal overnight and hence CIWA protocol was started. CIWA score of 9 this morning. No seizure since admission. Subjective not obtained due to clinical situations. Constitutional Vitals: Vital Signs Temp Pulse Resp BP Pulse Ox 39.5 C H 117 H 22 140/82 90 06/09/21 12:23 06/09/21 12:00 06/09/21 12:00 06/09/21 12:00 06/09/21 12:00 Period Temp Pulse Resp BP Sys/Herrera Pulse Ox Last 24 Hr 36.8 C-39.5 C 85-117 18-28 107-140/63-82 90-98 Intake and Output 06/09/21 06/09/21 06/09/21 05:59 13:59 21:59 Intake Total 1120 Output Total 202 Balance 918 Weight 106.413 kg Patient Weight 06/10/21 05:59 Weight 106.413 kg Intake & Output: Intake & Output 06/09/21 06/09/21 06/09/21 05:59 13:59 21:59 Intake Total 1120 Output Total 202 Balance 918 Weight 106.413 kg Intake: IV 520 Potassium Chloride 40 Meq In 520 Dextrose 5% in Water 500 ml @ 130 mls/hr IV ONCE ONE Rx#: [id number] Oral 600 Output: Void Amount 200 # of times incontinent of urine 2 Other: Urine Color Dark Yellow General appearance: cooperative and no acute distress Head Head exam: Present atraumatic and normocephalic Eye Eye exam: Present EOMI and PERRL ENT ENT exam: Present mucous membranes moist, normal exam and normal external ear exam Neck Neck exam: Present normal inspection; Absent lymphadenopathy, tenderness and thyromegaly Respiratory Respiratory exam: Absent accessory muscle use, respiratory distress and wheezes Cardiovascular Cardiovascular exam: Present normal rate and rhythm; Absent JVD GI/Abdominal GI/Abdominal exam: Present normal bowel sounds and soft; Absent organomegaly and tenderness Rectal Rectal exam: Present deferred Extremities Exam Extremities exam: Present full ROM, normal capillary refill and normal inspection; Absent tenderness Neurological Exam Neurological exam: Present altered and CN II-XII intact; Absent alert, motor sensory deficit and oriented X3 Psychiatric Psychiatric exam: Present normal affect and normal mood; Absent anxious and depressed Skin Skin exam: Present dry and intact OBJ DATA Labs CBC & Chem 7: 06/09/21 05:54 06/09/21 05:53 Labs: Abnormal Lab Results 06/09/21 06/09/21 06/08/21 05:54 05:53 19:04 WBC 17.9 H RBC 3.95 L Hgb 13.3 L Hct 36.4 L POC Hct MCHC 36.5 H Neut % (Auto) 79.5 H Lymph % (Auto) 9.1 L Lymph # (Auto) Lane # (Auto) 1.92 H Absolute Neutrophils 14.23 H ABG Methemoglobin VBG pH VBG pCO2 VBG Lactic Acid Carboxyhemoglobin POC Sodium Sodium 124 L 123 L POC Potassium Potassium POC Chloride Chloride 90 L 87 L POC BUN BUN 30 H 33 H Creatinine 0.6 L Glucose 121 H POC Glucose Calcium 7.4 L 7.7 L POC WB Ioniz Calcium Magnesium 3.4 H Total Bilirubin AST 114 H ALT 60 H Alkaline Phosphatase Ammonia Albumin 1.6 L Total Protein 5.5 L Globulin 3.9 H Albumin/Globulin Ratio 0.4 L Urine Appearance Urine Protein Urine Urobilinogen Ur Leukocyte Esterase Urine WBC Urine Mucus 06/08/21 06/08/21 06/08/21 13:32 12:09 11:00 WBC RBC Hgb Hct POC Hct 38 L MCHC Neut % (Auto) Lymph % (Auto) Lymph # (Auto) Lane # (Auto) Absolute Neutrophils ABG Methemoglobin VBG pH VBG pCO2 VBG Lactic Acid Carboxyhemoglobin POC Sodium 123 L 122 L Sodium POC Potassium 2.9 L* 3.1 L Potassium POC Chloride 86 L 87 L Chloride POC BUN 36 H 38 H BUN Creatinine Glucose POC Glucose 118 H 109 H Calcium POC WB Ioniz Calcium 0.97 L 0.90 L Magnesium Total Bilirubin AST ALT Alkaline Phosphatase Ammonia Albumin Total Protein Globulin Albumin/Globulin Ratio Urine Appearance Hazy A Urine Protein 30 A Urine Urobilinogen 4.0 A Ur Leukocyte Esterase 75 A Urine WBC 39 H Urine Mucus Few A 06/08/21 06/08/21 06/08/21 07:51 07:51 07:51 WBC 28.6 H RBC 4.29 L Hgb Hct 38.9 L POC Hct MCHC 37.3 H Neut % (Auto) 87.1 H Lymph % (Auto) 3.5 L Lymph # (Auto) 1.[address] # (Auto) 2.65 H Absolute Neutrophils 24.92 H ABG Methemoglobin VBG pH VBG pCO2 VBG Lactic Acid 2.4 H Carboxyhemoglobin POC Sodium 120 L Sodium 119 L* POC Potassium 3.1 L Potassium 3.2 L POC Chloride 82 L Chloride 80 L POC BUN 43 H BUN 42 H Creatinine Glucose 120 H POC Glucose 121 H Calcium 8.1 L POC WB Ioniz Calcium 0.92 L Magnesium Total Bilirubin 1.7 H AST 136 H ALT 74 H Alkaline Phosphatase 122 H Ammonia Albumin 2.2 L Total Protein Globulin 4.1 H Albumin/Globulin Ratio 0.5 L Urine Appearance Urine Protein Urine Urobilinogen Ur Leukocyte Esterase Urine WBC Urine Mucus 06/08/21 06/08/21 07:50 07:50 WBC RBC Hgb Hct POC Hct MCHC Neut % (Auto) Lymph % (Auto) Lymph # (Auto) Lane # (Auto) Absolute Neutrophils ABG Methemoglobin 0.3 L VBG pH 7.47 H VBG pCO2 37.4 L VBG Lactic Acid Carboxyhemoglobin 6.9 H POC Sodium Sodium POC Potassium Potassium POC Chloride Chloride POC BUN BUN Creatinine Glucose POC Glucose Calcium POC WB Ioniz Calcium Magnesium Total Bilirubin AST ALT Alkaline Phosphatase Ammonia 11 L Albumin Total Protein Globulin Albumin/Globulin Ratio Urine Appearance Urine Protein Urine Urobilinogen Ur Leukocyte Esterase Urine WBC Urine Mucus Meds: Medications Acetaminophen (Acetaminophen 325 Mg Tablet) 650 mg PO Q6HP PRN; Protocol PRN Reason: Per Pain Protocol/Fever > 101 Last Admin: 06/09/21 12:23 Dose: 650 mg Documented by: Ceftriaxone Sodium (Ceftriaxone 1 Gm Vial) 1 gm IV Q24H [facility] Last Admin: 06/09/21 10:39 Dose: 1 gm Documented by: Docusate Sodium (Docusate Sodium 100 Mg Capsule) 100 mg PO BID [facility] Last Admin: 06/09/21 10:38 Dose: 100 mg Documented by: Enoxaparin Sodium (Enoxaparin 40 Mg/0.4 Ml Syringe) 40 mg SQ DAILY [facility] Last Admin: 06/09/21 10:38 Dose: 40 mg Documented by: Hydroxyzine HCl (Hydroxyzine 25 Mg Tablet) 0 mg PO Q4HP PRN PRN Reason: Anxiety/Agitation Sodium Chloride (Sodium Chloride 0.9%) 1,000 mls @ 75 mls/hr IV .[id number] [facility] Last Admin: 06/09/21 07:19 Dose: Not Given Documented by: Potassium Chloride 20 meq/Magnesium Sulfate 16.24 meq/Thiamine HCl 100 mg/Multiv itamins/Minerals 10 ml/Sodium Chloride 1,025 mls @ 75 mls/hr IV .[id number] [facility] Stop: 06/10/21 07:39 Potassium Chloride 20 meq/Magnesium Sulfate 16.24 meq/Thiamine HCl 100 mg/Multivitamins/Minerals 10 ml/Sodium Chloride 1,025 mls @ 75 mls/hr IV .[id number] [facility] Stop: 06/11/21 07:39 Ibuprofen (Ibuprofen 600 Mg Tablet) 600 mg PO QIDP PRN; Protocol PRN Reason: Per Pain Protocol/Fever > 101 Lorazepam (Lorazepam 1 Mg Tablet) 2 mg PO Q2HP PRN PRN Reason: CIWA-A >6 or HR >100 Last Admin: 06/09/21 12:02 Dose: 2 mg Documented by: Metoprolol Tartrate (Metoprolol Tartrate 5 Mg/5 Ml Vial) 5 mg IV Q1H [facility] Last Admin: 06/09/21 14:35 Dose: Not Given Documented by: Ondansetron HCl (Ondansetron 4 Mg/2 Ml Vial) 4 mg IV Q6HP PRN PRN Reason: Nausea And Vomiting Oxycodone HCl (Oxycodone Hcl 5 Mg Tablet) 5 mg PO Q4HP PRN; Protocol PRN Reason: Per Pain Protocol Last Admin: 06/09/21 07:08 Dose: 5 mg Documented by: Senna (Sennosides 1 Tablet) 2 tab PO HS [facility] Last Admin: 06/08/21 21:38 Dose: 2 tab Documented by: Sodium Chloride (0.9 % Sodium Chloride 10 Ml Syringe) 10 ml IV Q8 [facility] Last Admin: 06/09/21 14:36 Dose: Not Given Documented by: Zolpidem Tartrate (Zolpidem 5 Mg Tablet) 5 mg PO HSP PRN PRN Reason: Insomnia ABG Interpretation ABG results: 06/08/21 07:50 ABG Methemoglobin 0.3 L VBG pH 7.47 H VBG pCO2 37.4 L VBG pO2 39.6 VBG HCO3 26.7 VBG Total CO2 27.8 VBG O2 Saturation 67.9 VBG Base Excess 3 A/P Assessment and plan (1) Acute hyponatremia: Status: Acute (2) Hypokalemia: Status: Acute (3) UTI (urinary tract infection): Status: Acute (4) Delirium tremens: Status: Acute (5) Anemia, normocytic normochromic: Status: Acute Narrative A/P Narrative: Assessment and Plans: 1. Hyponatremia: Unknown baseline as well as chronicity. Likely secondary to chronic alcoholism Check TSH with reflexive free T4 Stays in inpatient med surg with telemetry NS@75cc/hr BMP q6hr to prevent overly rapid correction of hyponatremia to avoid neurological complications such as central pontine myelinolysis. Goal of correction 8-10 point/first 24 hours [employer] patient on quitting alcohol consumption 2. UTI: UA suggestive of UTI. CXR no signs of pneumonia Blood culture X2, no growth to date Urine culture, prelim results growing S. aureus and Gram negative bacillus Rocephin Tylenol PRN fever cbc w/ auto diff in the morning to trend WBC 3. Hypokalemia: RESOLVED Potassium replacement protocol Will check CMP daily to trend serum potassium level and will repeat replacement as needed Also will check serum Mg level and will replace as needed as well 4. Right clavicular dislocation: Consult Orthopedics Dr. Del Rio, recs. appreciated----> not surgical candidate. Weight bearing as tolerated. F/u [facility] outpatient Ibuprofen PRN mild pain Oxycodone PRN moderate pain 5. Anemia, normocytic normochromic: Likely secondary to chronic alcoholism cbc w/ auto diff in the morning to trend H/H; transfuse pRBC if hemoglobin <7.0, active bleeding, or symptomatic 6. Delirium tremens: CIWA protocol, measures to be provided for symptoms relief GI ppx: not currently indicated DVT ppx: Lovenox Code status: Full Prognosis: guarded Disposition: inpatient med surg Time Spent With Patient Time: Total time spent is greater than 50% in coordination of care (as documented) at patient's floor/unit and/or counseling patient: Total time spent with greater than 50% in coordination of care (as documented) at patient's floor/unit and/or counseling patient:: 25 - 35 minutes QUALITY VTE Deep Vein Thrombosis/Pulmonary Embolism Present on Admission: No
[2021-06-09 16:23] LABS: Blood Urea Nitrogen 30 mg/dL (6-20); Calcium 7.7 mg/dL (8.6-10.4); Carbon Dioxide 23 mmol/L (22-30); Chloride 90 mmol/L (96-108); Glomerular Filtration Rate 102; Glucose 75 mg/dL (70-105)
[2021-06-09 19:37] LABS: Blood Urea Nitrogen 31 mg/dL (6-20); Calcium 7.6 mg/dL (8.6-10.4); Carbon Dioxide 24 mmol/L (22-30); Chloride 92 mmol/L (96-108); Glomerular Filtration Rate 102; Glucose 93 mg/dL (70-105)
[2021-06-09] MEDS: SENNOSIDES 1 TABLET PO SCH (21:05)
[2021-06-09] MEDS: IBUPROFEN 600 MG TABLET PO PRN (21:05)
[2021-06-09] MEDS ORDERED: LORazepam 2 MG/ML VIAL IV PRN (22:57)
[2021-06-10] MEDS: METOPROLOL TARTRATE 5 MG/5 ML VIAL IV SCH ×9 (01:03→12:59)
[2021-06-10 03:16] LABS: Blood Urea Nitrogen 34 mg/dL (6-20); Calcium 7.3 mg/dL (8.6-10.4); Carbon Dioxide 23 mmol/L (22-30); Chloride 97 mmol/L (96-108); Glomerular Filtration Rate 102; Glucose 101 mg/dL (70-105)
[2021-06-10] MEDS: 0.9 % SODIUM CHLORIDE 10 ML SYRINGE IV SCH ×3 (06:31→21:24)
[2021-06-10] MEDS: 0.9 % SODIUM CHLORIDE 1,000 ML IV SCH ×2 (06:39→12:39)
[2021-06-10 08:14] LABS: Basophils # (Auto) 0.03 K/mcL (0.00-0.30); Basophils % (Auto) 0.2 % (0.0-2.0); Eosinophils # (Auto) 0.05 K/mcL (0.00-0.70); Eosinophils % (Auto) 0.3 % (0.0-7.0); Hematocrit 39.7 % (40.1-51.0); Hemoglobin 14.1 g/dL (13.7-17.5); Lymphocytes # (Auto) 2.19 K/mcL (1.50-4.80); Mean Cell Volume 91.9 fL (80.0-100.0); Mean Corpuscular HGB Conc 35.5 g/dL (31.0-36.0); Mean Platelet Volume 9.8 fL (7.4-10.4); Monocytes # (Auto) 1.07 K/mcL (0.10-0.90); Platelet Count 240 K/mcL (140-440); RBC 4.32 M/mcL (4.63-6.08); Red Cell Distribution Width 13.5 % (11.5-14.5); WBC 15.4 K/mcL (4.5-11.0)
[2021-06-10 08:15] LABS: ALT/SGPT 115 U/L (<40); AST/SGOT 239 U/L (<40); Albumin 1.5 gm/dL (3.2-5.2); Albumin/Globulin Ratio 0.3 (1.0-2.3); Alkaline Phosphatase 107 U/L (39-117); Bilirubin,Total 0.9 mg/dL (0.1-1.0); Blood Urea Nitrogen 30 mg/dL (6-20); Calcium 7.6 mg/dL (8.6-10.4); Carbon Dioxide 22 mmol/L (22-30); Chloride 96 mmol/L (96-108); Globulin 4.5 gm/dL (2.2-3.7); Glomerular Filtration Rate 102; Glucose 77 mg/dL (70-105)
[2021-06-10] MEDS ORDERED: POTASSIUM CHLORIDE 20 MEQ, MAGNESIUM SULFATE 16.24 MEQ, THIAMINE 100 MG, MVI, ADULT NO.... IV SCH (09:00)
[2021-06-10 09:07] LABS: Lymphocytes % (Auto) 14.2 % (15.5-49.0); Neutrophils % (Auto) 78.3 % (38.0-78.0)
[2021-06-10] MEDS: ENOXAPARIN 40 MG/0.4 ML SYRINGE SQ SCH (09:13)
[2021-06-10] MEDS: DOCUSATE SODIUM 100 MG CAPSULE PO SCH ×2 (09:13→21:24)
[2021-06-10] MEDS: cefTRIAXone 1 GM VIAL IV SCH (09:14)
[2021-06-10] MEDS: LORazepam 1 MG TABLET PO PRN ×3 (09:31→23:34)
[2021-06-10] MEDS ORDERED: METOPROLOL TARTRATE 5 MG/5 ML VIAL IV PRN (11:46)
[2021-06-10] MEDS ORDERED: CALCIUM GLUCONATE 4.65 MEQ/10 ML VIAL IV ONE (14:34)
--- NOTE | 2021-06-10 14:39 | Internal Med Progress Note ---
SUBJECTIVE Subjective Patient information: Note initiated : 06/10/21 at 2:34 pm Service Date, if different from initiated Date: [] Patient: Saman Olson 60 y/o M admitted on 06/08/21 for Weakness. Chief Complaint: [Delirium tremens, hyponatremia, and UTI] Interval history: History of present illness: Mr. Olson is a 60 year old M history of chronic alcoholism and recent trauma of his right clavicle with resultant right clavicular dislocations, was brought by family to the ER because of general body weakness. Patient has a injury with right clavicular dislocations on May 27, 2021. Patient was being brought to [facility] yesterday for associated clavicular pain and he was being discharged home the same day from the ER. Today, patient fell for a week and he was unable to get up from toilet. As a result, patient was being brought by family members to our ER for further evaluation and treatment. His father stated that patient has a long history of alcoholism although in the past 3 to 4 days patient has not been consuming any alcohol at all. Vital signs upon ER presentation with normal limits. Labs significant for leukocytosis with WBC 28 as well as hyponatremia with sodium level 120 with unknown baseline. Serum alcohol level undetectable. Urinalysis suggest the presence of urinary tract infections. Chest x-ray does not reveal any signs of pneumonia. CT of the head no acute intracranial abnormalities. There is no focal neurological deficit. 06/09: Started to show symptoms of alcohol withdrawal overnight and hence CIWA protocol was started. CIWA score of 9 this morning. No seizure since admission. Subjective not obtained due to clinical situations. 06/10: Low grade fever Tmax 37.7 overnight. Urine culture growing S aureus and E coli. CIWA score 8 this morning. No seizure since admission. Patient denies anxiety or agitation. He denies any pain. He denies any hallucinations. Constitutional Vitals: Vital Signs Temp Pulse Resp BP Pulse Ox 36.5 C 95 H 26 H 147/86 96 06/10/21 07:39 06/10/21 07:39 06/10/21 07:39 06/10/21 07:39 06/10/21 07:39 Period Temp Pulse Resp BP Sys/Herrera Pulse Ox Last 24 Hr 36.4 C-37.7 C 84-107 20-28 99-147/58-86 88-96 Intake and Output 08/26/21 08/26/21 08/26/21 05:59 13:59 21:59 Intake Total 600 1865 Output Total 1 302 Balance 599 1563 Weight 108.862 kg Patient Weight 06/11/21 05:59 Weight 108.862 kg Intake & Output: Intake & Output 06/10/21 06/10/21 06/10/21 05:59 13:59 21:59 Intake Total 600 1865 Output Total 1 302 Balance 599 1563 Weight 108.862 kg Intake: IV 1025 Potassium Chloride 20 Meq 1025 Magnesium Sulfate 16.24 Meq Vitamin B1 100 mg Infuvite Adult 10 ml In Sodium Chloride 0.9% 1,000 ml @ 75 mls/hr IV . [id number] [facility] Rx#:[id number] Oral 600 840 Output: Void Amount 300 # of times incontinent of urine 1 2 Other: Meal Breakfast Percent of Meal Consumed 100% Urine Appearance Uretheral ([place]) Clear Urine Color Uretheral ([place]) Bright Yellow Urine Odor Uretheral ([place]) Normal General appearance: cooperative, disheveled and no acute distress Head Head exam: Present atraumatic and normocephalic Eye Eye exam: Present EOMI and PERRL ENT ENT exam: Present mucous membranes moist, normal exam and normal external ear exam Neck Neck exam: Present normal inspection; Absent lymphadenopathy, tenderness and thyromegaly Respiratory Respiratory exam: Absent accessory muscle use, respiratory distress and wheezes Cardiovascular Cardiovascular exam: Present normal rate and rhythm; Absent JVD GI/Abdominal GI/Abdominal exam: Present normal bowel sounds and soft; Absent organomegaly and tenderness Rectal Rectal exam: Present deferred Extremities Exam Extremities exam: Present full ROM, normal capillary refill and normal inspection; Absent tenderness Neurological Exam Neurological exam: Present alert and CN II-XII intact; Absent motor sensory deficit and oriented X3 Additional comments: Oriented X1 to person only Psychiatric Psychiatric exam: Present normal affect and normal mood; Absent anxious and depressed Skin Skin exam: Present dry and intact OBJ DATA Labs CBC & Chem 7: 06/10/21 06:11 06/10/21 06:10 Labs: Abnormal Lab Results 06/10/21 06/10/21 06/10/21 06:11 06:10 00:55 WBC 15.4 H RBC 4.32 L Hgb Hct 39.7 L POC Hct MCHC Neut % (Auto) 78.3 H Lymph % (Auto) 14.2 L Lymph # (Auto) [place] # (Auto) 1.07 H Absolute Neutrophils 12.05 H ABG Methemoglobin VBG pH VBG pCO2 VBG Lactic Acid Carboxyhemoglobin POC Sodium Sodium 132 L 132 L POC Potassium Potassium POC Chloride Chloride POC BUN BUN 30 H 34 H Creatinine Glucose POC Glucose Calcium 7.6 L 7.3 L POC WB Ioniz Calcium Magnesium 3.7 H Total Bilirubin AST 239 H ALT 115 H Alkaline Phosphatase Ammonia Albumin 1.5 L Total Protein Globulin 4.5 H Albumin/Globulin Ratio 0.3 L Urine Appearance Urine Protein Urine Urobilinogen Ur Leukocyte Esterase Urine WBC Urine Mucus 06/09/21 06/09/21 06/09/21 18:17 12:17 05:54 WBC 17.9 H RBC 3.95 L Hgb 13.3 L Hct 36.4 L POC Hct MCHC 36.5 H Neut % (Auto) 79.5 H Lymph % (Auto) 9.1 L Lymph # (Auto) [place] # (Auto) 1.92 H Absolute Neutrophils 14.23 H ABG Methemoglobin VBG pH VBG pCO2 VBG Lactic Acid Carboxyhemoglobin POC Sodium Sodium 126 L 128 L POC Potassium Potassium POC Chloride Chloride 92 L 90 L POC BUN BUN 31 H 30 H Creatinine Glucose POC Glucose Calcium 7.6 L 7.7 L POC WB Ioniz Calcium Magnesium Total Bilirubin AST ALT Alkaline Phosphatase Ammonia Albumin Total Protein Globulin Albumin/Globulin Ratio Urine Appearance Urine Protein Urine Urobilinogen Ur Leukocyte Esterase Urine WBC Urine Mucus 06/09/21 06/08/21 06/08/21 05:53 19:04 13:32 WBC RBC Hgb Hct POC Hct 38 L MCHC Neut % (Auto) Lymph % (Auto) Lymph # (Auto) [place] # (Auto) Absolute Neutrophils ABG Methemoglobin VBG pH VBG pCO2 VBG Lactic Acid Carboxyhemoglobin POC Sodium 123 L Sodium 124 L 123 L POC Potassium 2.9 L* Potassium POC Chloride 86 L Chloride 90 L 87 L POC BUN 36 H BUN 30 H 33 H Creatinine 0.6 L Glucose 121 H POC Glucose 118 H Calcium 7.4 L 7.7 L POC WB Ioniz Calcium 0.97 L Magnesium 3.4 H Total Bilirubin AST 114 H ALT 60 H Alkaline Phosphatase Ammonia Albumin 1.6 L Total Protein 5.5 L Globulin 3.9 H Albumin/Globulin Ratio 0.4 L Urine Appearance Urine Protein Urine Urobilinogen Ur Leukocyte Esterase Urine WBC Urine Mucus 06/08/21 06/08/21 06/08/21 12:09 11:00 07:51 WBC RBC Hgb Hct POC Hct MCHC Neut % (Auto) Lymph % (Auto) Lymph # (Auto) [place] # (Auto) Absolute Neutrophils ABG Methemoglobin VBG pH VBG pCO2 VBG Lactic Acid 2.4 H Carboxyhemoglobin POC Sodium 122 L Sodium POC Potassium 3.1 L Potassium POC Chloride 87 L Chloride POC BUN 38 H BUN Creatinine Glucose POC Glucose 109 H Calcium POC WB Ioniz Calcium 0.90 L Magnesium Total Bilirubin AST ALT Alkaline Phosphatase Ammonia Albumin Total Protein Globulin Albumin/Globulin Ratio Urine Appearance Hazy A Urine Protein 30 A Urine Urobilinogen 4.0 A Ur Leukocyte Esterase 75 A Urine WBC 39 H Urine Mucus Few A 06/08/21 06/08/21 06/08/21 07:51 07:51 07:50 WBC 28.6 H RBC 4.29 L Hgb Hct 38.9 L POC Hct MCHC 37.3 H Neut % (Auto) 87.1 H Lymph % (Auto) 3.5 L Lymph # (Auto) 1.01 L [place] # (Auto) 2.65 H Absolute Neutrophils 24.92 H ABG Methemoglobin VBG pH VBG pCO2 VBG Lactic Acid Carboxyhemoglobin POC Sodium 120 L Sodium 119 L* POC Potassium 3.1 L Potassium 3.2 L POC Chloride 82 L Chloride 80 L POC BUN 43 H BUN 42 H Creatinine Glucose 120 H POC Glucose 121 H Calcium 8.1 L POC WB Ioniz Calcium 0.92 L Magnesium Total Bilirubin 1.7 H AST 136 H ALT 74 H Alkaline Phosphatase 122 H Ammonia 11 L Albumin 2.2 L Total Protein Globulin 4.1 H Albumin/Globulin Ratio 0.5 L Urine Appearance Urine Protein Urine Urobilinogen Ur Leukocyte Esterase Urine WBC Urine Mucus 06/08/21 07:50 WBC RBC Hgb Hct POC Hct MCHC Neut % (Auto) Lymph % (Auto) Lymph # (Auto) [place] # (Auto) Absolute Neutrophils ABG Methemoglobin 0.3 L VBG pH 7.47 H VBG pCO2 37.4 L VBG Lactic Acid Carboxyhemoglobin 6.9 H POC Sodium Sodium POC Potassium Potassium POC Chloride Chloride POC BUN BUN Creatinine Glucose POC Glucose Calcium POC WB Ioniz Calcium Magnesium Total Bilirubin AST ALT Alkaline Phosphatase Ammonia Albumin Total Protein Globulin Albumin/Globulin Ratio Urine Appearance Urine Protein Urine Urobilinogen Ur Leukocyte Esterase Urine WBC Urine Mucus Meds: Medications Acetaminophen (Acetaminophen 325 Mg Tablet) 650 mg PO Q6HP PRN; Protocol PRN Reason: Per Pain Protocol/Fever > 101 Last Admin: 06/09/21 12:23 Dose: 650 mg Documented by: Calcium Gluconate (Calcium Gluconate 4.65 Meq/10 Ml Vial) 9.3 meq IV ONCE ONE Stop: 06/10/21 14:35 Ceftriaxone Sodium (Ceftriaxone 1 Gm Vial) 1 gm IV Q24H [facility] Last Admin: 06/10/21 09:14 Dose: 1 gm Documented by: Docusate Sodium (Docusate Sodium 100 Mg Capsule) 100 mg PO BID [facility] Last Admin: 06/10/21 09:13 Dose: Not Given Documented by: Enoxaparin Sodium (Enoxaparin 40 Mg/0.4 Ml Syringe) 40 mg SQ DAILY [facility] Last Admin: 06/10/21 09:13 Dose: 40 mg Documented by: Hydroxyzine HCl (Hydroxyzine 25 Mg Tablet) 0 mg PO Q4HP PRN PRN Reason: Anxiety/Agitation Sodium Chloride (Sodium Chloride 0.9%) 1,000 mls @ 75 mls/hr IV .[id number] [facility] Last Admin: 06/10/21 12:39 Dose: Not Given Documented by: Potassium Chloride 20 meq/Thiamine HCl 100 mg/Multivitamins/Minerals 10 ml/Sodium Chloride 1,021 mls @ 75 mls/hr IV .[id number] [facility] Stop: 06/11/21 07:36 Ibuprofen (Ibuprofen 600 Mg Tablet) 600 mg PO QIDP PRN; Protocol PRN Reason: Per Pain Protocol/Fever > 101 Last Admin: 06/09/21 21:05 Dose: 600 mg Documented by: Lorazepam (Lorazepam 1 Mg Tablet) 2 mg PO Q2HP PRN PRN Reason: CIWA-A >6 or HR >100 Last Admin: 06/10/21 09:31 Dose: 2 mg Documented by: Lorazepam (Lorazepam 2 Mg/Ml Vial) 1 mg IV ONCE PRN PRN Reason: Withdrawl Symptoms Ondansetron HCl (Ondansetron 4 Mg/2 Ml Vial) 4 mg IV Q6HP PRN PRN Reason: Nausea And Vomiting Oxycodone HCl (Oxycodone Hcl 5 Mg Tablet) 5 mg PO Q4HP PRN; Protocol PRN Reason: Per Pain Protocol Last Admin: 06/09/21 07:08 Dose: 5 mg Documented by: Senna (Sennosides 1 Tablet) 2 tab PO HS [facility] Last Admin: 06/09/21 21:05 Dose: 2 tab Documented by: Sodium Chloride (0.9 % Sodium Chloride 10 Ml Syringe) 10 ml IV Q8 [facility] Last Admin: 06/10/21 14:06 Dose: Not Given Documented by: Zolpidem Tartrate (Zolpidem 5 Mg Tablet) 5 mg PO HSP PRN PRN Reason: Insomnia ABG Interpretation ABG results: 06/08/21 07:50 ABG Methemoglobin 0.3 L VBG pH 7.47 H VBG pCO2 37.4 L VBG pO2 39.6 VBG HCO3 26.7 VBG Total CO2 27.8 VBG O2 Saturation 67.9 VBG Base Excess 3 A/P Assessment and plan (1) Acute hyponatremia: Status: Acute (2) Hypokalemia: Status: Acute (3) UTI (urinary tract infection): Status: Acute (4) Delirium tremens: Status: Acute (5) Anemia, normocytic normochromic: Status: Acute Narrative A/P Narrative: Assessment and Plans: 1. Hyponatremia: RESOLVED Serum sodium level 132 this morning Unknown baseline as well as chronicity. Likely secondary to chronic alcoholism Check TSH with reflexive free T4: 0.30 Stays in inpatient med surg with telemetry NS@75cc/hr d/c BMP q6hr [place] patient on quitting alcohol consumption 2. UTI: UA suggestive of UTI. CXR no signs of pneumonia Blood culture X2, no growth to date Urine culture, prelim results growing S. aureus and E coli Rocephin Tylenol PRN fever cbc w/ auto diff in the morning to trend WBC 3. Hypokalemia: RESOLVED Potassium replacement protocol Will check CMP daily to trend serum potassium level and will repeat replacement as needed Also will check serum Mg level and will replace as needed as well 4. Right clavicular dislocation: Consult Orthopedics Dr. Del Rio, recs. appreciated----> not surgical candidate. Weight bearing as tolerated. F/u [facility] outpatient Ibuprofen PRN mild pain Oxycodone PRN moderate pain 5. Anemia, normocytic normochromic: Likely secondary to chronic alcoholism cbc w/ auto diff in the morning to trend H/H; transfuse pRBC if hemoglobin <7.0, active bleeding, or symptomatic 6. Delirium tremens: CIWA protocol, measures to be provided for symptoms relief GI ppx: not currently indicated DVT ppx: Lovenox Code status: Full Prognosis: guarded Disposition: inpatient med surg Time Spent With Patient Time: Total time spent is greater than 50% in coordination of care (as documented) at patient's floor/unit and/or counseling patient: Total time spent with greater than 50% in coordination of care (as documented) at patient's floor/unit and/or counseling patient:: 25 - 35 minutes QUALITY VTE Deep Vein Thrombosis/Pulmonary Embolism Present on Admission: No
[2021-06-10] MEDS ORDERED: CALCIUM GLUCONATE 9.3 MEQ in DEXTROSE 5% IN WATER 50 ML IV ONE (14:45)
[2021-06-10] MEDS: IBUPROFEN 600 MG TABLET PO PRN (14:52)
[2021-06-10 16:43] LABS: Blood Urea Nitrogen 24 mg/dL (6-20); Calcium 7.1 mg/dL (8.6-10.4); Carbon Dioxide 21 mmol/L (22-30); Chloride 98 mmol/L (96-108); Glomerular Filtration Rate 109; Glucose 109 mg/dL (70-105)
[2021-06-10] MEDS: ACETAMINOPHEN 325 MG TABLET PO PRN (17:19)
[2021-06-10] MEDS ORDERED: POTASSIUM CHLORIDE 20 MEQ, THIAMINE 100 MG, MVI, ADULT NO.4 WITH VIT K 10 ML in 0.9 % S... IV SCH (18:00)
[2021-06-10] MEDS: SENNOSIDES 1 TABLET PO SCH (21:24)
[2021-06-11] MEDS: 0.9 % SODIUM CHLORIDE 1,000 ML IV SCH ×4 (00:50→22:37)
[2021-06-11] MEDS: hydrOXYzine 25 MG TABLET PO PRN ×2 (01:01→20:36)
[2021-06-11] MEDS: oxyCODONE HCL 5 MG TABLET PO PRN (01:23)
[2021-06-11] MEDS: 0.9 % SODIUM CHLORIDE 10 ML SYRINGE IV SCH ×3 (04:27→20:37)
[2021-06-11 07:09] LABS: Basophils # (Auto) 0.13 K/mcL (0.00-0.30); Basophils % (Auto) 0.7 % (0.0-2.0); Eosinophils # (Auto) 0.06 K/mcL (0.00-0.70); Eosinophils % (Auto) 0.3 % (0.0-7.0); Lymphocytes # (Auto) 1.67 K/mcL (1.50-4.80); Mean Cell Volume 92.7 fL (80.0-100.0); Mean Corpuscular HGB Conc 35.1 g/dL (31.0-36.0); Mean Platelet Volume 9.6 fL (7.4-10.4); Monocytes # (Auto) 0.86 K/mcL (0.10-0.90); Monocytes % (Auto) 4.9 % (1.0-12.0); Platelet Count 269 K/mcL (140-440); RBC 3.99 M/mcL (4.63-6.08); Red Cell Distribution Width 13.9 % (11.5-14.5); WBC 17.6 K/mcL (4.5-11.0)
[2021-06-11 07:20] LABS: ALT/SGPT 283 U/L (<40); AST/SGOT 413 U/L (<40); Albumin 1.4 gm/dL (3.2-5.2); Albumin/Globulin Ratio 0.3 (1.0-2.3); Alkaline Phosphatase 160 U/L (39-117); Bilirubin,Total 0.7 mg/dL (0.1-1.0); Blood Urea Nitrogen 19 mg/dL (6-20); Calcium 7.1 mg/dL (8.6-10.4); Carbon Dioxide 24 mmol/L (22-30); Chloride 98 mmol/L (96-108); Globulin 4.3 gm/dL (2.2-3.7); Glomerular Filtration Rate 109; Glucose 90 mg/dL (70-105)
[2021-06-11 08:01] LABS: Lymphocytes % (Auto) 9.5 % (15.5-49.0); Neutrophils % (Auto) 84.6 % (38.0-78.0)
[2021-06-11] MEDS: DOCUSATE SODIUM 100 MG CAPSULE PO SCH ×2 (08:25→20:35)
[2021-06-11] MEDS: cefTRIAXone 1 GM VIAL IV SCH (08:25)
[2021-06-11] MEDS: ENOXAPARIN 40 MG/0.4 ML SYRINGE SQ SCH (08:26)
[2021-06-11] MEDS ORDERED: VANCOMYCIN PER PHARMACY IV ONE (13:49)
--- NOTE | 2021-06-11 13:51 | Internal Med Progress Note ---
SUBJECTIVE Subjective Patient information: Note initiated : 06/11/21 at 1:49 pm Service Date, if different from initiated Date: [] Patient: Saman Olson a 60 y/o M admitted on 06/08/21 for Weakness. Chief Complaint: [Delirium tremens, UTI, bacteremia] Interval history: History of present illness: Mr. Olson is a 60 year old M history of chronic alcoholism and recent trauma of his right clavicle with resultant right clavicular dislocations, was brought by family to the ER because of general body weakness. Patient has a injury with right clavicular dislocations on May 27, 2021. Patient was being brought to [facility] yesterday for associated clavicular pain and he was being discharged home the same day from the ER. Today, patient fell for a week and he was unable to get up from toilet. As a result, patient was being brought by family members to our ER for further evaluation and treatment. His father stated that patient has a long history of alcoholism although in the past 3 to 4 days patient has not been consuming any alcohol at all. Vital signs upon ER presentation with normal limits. Labs significant for leukocytosis with WBC 28 as well as hyponatremia with sodium level 120 with unknown baseline. Serum alcohol level undetectable. Urinalysis suggest the presence of urinary tract infections. Chest x-ray does not reveal any signs of pneumonia. CT of the head no acute intracranial abnormalities. There is no focal neurological deficit. 06/09: Started to show symptoms of alcohol withdrawal overnight and hence CIWA protocol was started. CIWA score of 9 this morning. No seizure since admission. Subjective not obtained due to clinical situations. 06/10: Low grade fever Tmax 37.7 overnight. Urine culture growing S aureus and E coli. CIWA score 8 this morning. No seizure since admission. Patient denies anxiety or agitation. He denies any pain. He denies any hallucinations. 06/11: Low grade fever Tmax 37.9 overnight. Urine culture growing S aureus (menezes- sensitive) and E coli. Blood culture growing S. aureus, sensitivity pending. CIWA score 9 this morning. No seizure since admission. Patient denies anxiety or agitation. He denies any pain. He denies any hallucinations. Constitutional Vitals: Vital Signs Temp Pulse Resp BP Pulse Ox 36.9 C 109 H 22 131/78 92 06/11/21 11:56 06/11/21 11:56 06/11/21 11:56 06/11/21 11:56 06/11/21 11:56 Period Temp Pulse Resp BP Sys/Herrera Pulse Ox Last 24 Hr 36.4 C-37.9 C 91-112 16-24 127-144/71-80 90-95 Intake and Output 06/10/21 06/11/21 06/11/21 21:59 05:59 13:59 Intake Total 7093 732 8340 Output Total 500 1000 Balance 570 -520 2981 Weight 109.911 kg 110.268 kg Patient Weight 06/12/21 05:59 Weight 110.268 kg Intake & Output: Intake & Output 06/10/21 06/11/21 06/11/21 21:59 05:59 13:59 Intake Total 2687 561 4135 Output Total 500 1000 Balance 570 -520 2981 Weight 109.911 kg 110.268 kg Intake: IV 1070 1021 Sodium Chloride 0.9% 1,000 ml @ 1000 75 mls/hr IV .[id number] [facility] Rx#: [id number] Calcium Gluconate 9.3 Meq In 70 Dextrose 5% in Water 50 ml @ 70 mls/hr IV ONCE ONE Rx#: [id number] Potassium Chloride 20 Meq 1021 Vitamin B1 100 mg Infuvite Adult 10 ml In Sodium Chloride 0.9% 1,000 ml @ 75 mls/hr IV . [id number] [facility] Rx#:[id number] Oral 480 1960 Output: Urine Catheter Amount 500 1000 Other: Meal Lunch Lunch Percent of Meal Consumed 50% 25% Feeding Ability Total Assistance Total Assistance Urine Appearance Clear Clear Uretheral ([place]) Cloudy Urine Color Bright Yellow Dark Rachel Tea Colored Uretheral ([place]) Dark Yellow Urine Odor Normal General appearance: cooperative, disheveled, no acute distress and thin Head Head exam: Present atraumatic and normocephalic Eye Eye exam: Present EOMI and PERRL ENT ENT exam: Present mucous membranes moist, normal exam and normal external ear exam Neck Neck exam: Present normal inspection; Absent lymphadenopathy, tenderness and thyromegaly Respiratory Respiratory exam: Absent accessory muscle use, respiratory distress and wheezes Cardiovascular Cardiovascular exam: Present normal rate and rhythm; Absent JVD GI/Abdominal GI/Abdominal exam: Present normal bowel sounds and soft; Absent organomegaly and tenderness Rectal Rectal exam: Present deferred Extremities Exam Extremities exam: Present full ROM, normal capillary refill and normal inspection; Absent tenderness Neurological Exam Neurological exam: Present alert, altered and CN II-XII intact; Absent motor sensory deficit and oriented X3 Additional comments: oriented X1 to person only Psychiatric Psychiatric exam: Present normal affect and normal mood; Absent anxious and depressed Skin Skin exam: Present dry and intact OBJ DATA Labs CBC & Chem 7: 06/11/21 06:04 06/11/21 06:03 Labs: Abnormal Lab Results 06/11/21 06/11/21 06/10/21 06:04 06:03 12:16 WBC 17.6 H RBC 3.99 L Hgb 13.0 L Hct 37.0 L MCHC Neut % (Auto) 84.6 H Lymph % (Auto) 9.5 L [place] # (Auto) Absolute Neutrophils 14.83 H Sodium 132 L 132 L Chloride Carbon Dioxide 21 L BUN 24 H Creatinine 0.6 L 0.6 L Glucose 109 H Calcium 7.1 L 7.1 L Magnesium AST 413 H ALT 283 H Alkaline Phosphatase 160 H Total Protein 5.7 L Albumin 1.4 L Globulin 4.3 H Albumin/Globulin Ratio 0.3 L Urine Appearance Urine Protein Urine Urobilinogen Ur Leukocyte Esterase Urine WBC Urine Mucus 06/10/21 06/10/21 06/10/21 06:11 06:10 00:55 WBC 15.4 H RBC 4.32 L Hgb Hct 39.7 L MCHC Neut % (Auto) 78.3 H Lymph % (Auto) 14.2 L [place] # (Auto) 1.07 H Absolute Neutrophils 12.05 H Sodium 132 L 132 L Chloride Carbon Dioxide BUN 30 H 34 H Creatinine Glucose Calcium 7.6 L 7.3 L Magnesium 3.7 H AST 239 H ALT 115 H Alkaline Phosphatase Total Protein Albumin 1.5 L Globulin 4.5 H Albumin/Globulin Ratio 0.3 L Urine Appearance Urine Protein Urine Urobilinogen Ur Leukocyte Esterase Urine WBC Urine Mucus 06/09/21 06/09/21 06/09/21 18:17 12:17 05:54 WBC 17.9 H RBC 3.95 L Hgb 13.3 L Hct 36.4 L MCHC 36.5 H Neut % (Auto) 79.5 H Lymph % (Auto) 9.1 L [place] # (Auto) 1.92 H Absolute Neutrophils 14.23 H Sodium 126 L 128 L Chloride 92 L 90 L Carbon Dioxide BUN 31 H 30 H Creatinine Glucose Calcium 7.6 L 7.7 L Magnesium AST ALT Alkaline Phosphatase Total Protein Albumin Globulin Albumin/Globulin Ratio Urine Appearance Urine Protein Urine Urobilinogen Ur Leukocyte Esterase Urine WBC Urine Mucus 06/09/21 06/08/21 06/08/21 05:53 19:04 12:09 WBC RBC Hgb Hct MCHC Neut % (Auto) Lymph % (Auto) [place] # (Auto) Absolute Neutrophils Sodium 124 L 123 L Chloride 90 L 87 L Carbon Dioxide BUN 30 H 33 H Creatinine 0.6 L Glucose 121 H Calcium 7.4 L 7.7 L Magnesium 3.4 H AST 114 H ALT 60 H Alkaline Phosphatase Total Protein 5.5 L Albumin 1.6 L Globulin 3.9 H Albumin/Globulin Ratio 0.4 L Urine Appearance Hazy A Urine Protein 30 A Urine Urobilinogen 4.0 A Ur Leukocyte Esterase 75 A Urine WBC 39 H Urine Mucus Few A Meds: Medications Acetaminophen (Acetaminophen 325 Mg Tablet) 650 mg PO Q6HP PRN; Protocol PRN Reason: Per Pain Protocol/Fever > 101 Last Admin: 06/10/21 17:19 Dose: 650 mg Documented by: Ceftriaxone Sodium (Ceftriaxone 1 Gm Vial) 1 gm IV Q24H [facility] Last Admin: 06/11/21 08:25 Dose: 1 gm Documented by: Docusate Sodium (Docusate Sodium 100 Mg Capsule) 100 mg PO BID [facility] Last Admin: 06/11/21 08:25 Dose: 100 mg Documented by: Enoxaparin Sodium (Enoxaparin 40 Mg/0.4 Ml Syringe) 40 mg SQ DAILY [facility] Last Admin: 06/11/21 08:26 Dose: 40 mg Documented by: Hydroxyzine HCl (Hydroxyzine 25 Mg Tablet) 0 mg PO Q4HP PRN PRN Reason: Anxiety/Agitation Last Admin: 06/11/21 01:01 Dose: 50 mg Documented by: Sodium Chloride (Sodium Chloride 0.9%) 1,000 mls @ 75 mls/hr IV .[id number] [facility] Last Admin: 06/11/21 12:23 Dose: Not Given Documented by: Ibuprofen (Ibuprofen 600 Mg Tablet) 600 mg PO QIDP PRN; Protocol PRN Reason: Per Pain Protocol/Fever > 101 Last Admin: 06/10/21 14:52 Dose: 600 mg Documented by: Lorazepam (Lorazepam 1 Mg Tablet) 2 mg PO Q2HP PRN PRN Reason: CIWA-A >6 or HR >100 Last Admin: 06/10/21 23:34 Dose: 2 mg Documented by: Lorazepam (Lorazepam 2 Mg/Ml Vial) 1 mg IV ONCE PRN PRN Reason: Withdrawl Symptoms Ondansetron HCl (Ondansetron 4 Mg/2 Ml Vial) 4 mg IV Q6HP PRN PRN Reason: Nausea And Vomiting Oxycodone HCl (Oxycodone Hcl 5 Mg Tablet) 5 mg PO Q4HP PRN; Protocol PRN Reason: Per Pain Protocol Last Admin: 06/11/21 01:23 Dose: 5 mg Documented by: Senna (Sennosides 1 Tablet) 2 tab PO HS [facility] Last Admin: 06/10/21 21:24 Dose: 2 tab Documented by: Sodium Chloride (0.9 % Sodium Chloride 10 Ml Syringe) 10 ml IV Q8 [facility] Last Admin: 06/11/21 12:23 Dose: Not Given Documented by: Zolpidem Tartrate (Zolpidem 5 Mg Tablet) 5 mg PO HSP PRN PRN Reason: Insomnia ABG Interpretation ABG results: 06/08/21 07:50 ABG Methemoglobin 0.3 L VBG pH 7.47 H VBG pCO2 37.4 L VBG pO2 39.6 VBG HCO3 26.7 VBG Total CO2 27.8 VBG O2 Saturation 67.9 VBG Base Excess 3 A/P Assessment and plan (1) Acute hyponatremia: Status: Acute (2) Hypokalemia: Status: Acute (3) UTI (urinary tract infection): Status: Acute (4) Delirium tremens: Status: Acute (5) Anemia, normocytic normochromic: Status: Acute (6) Staphylococcus aureus bacteremia: Status: Acute Narrative A/P Narrative: Assessment and Plans: 1. Hyponatremia: RESOLVED Serum sodium level 132 this morning Unknown baseline as well as chronicity. 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 UTI: UA suggestive of UTI. CXR no signs of pneumonia Blood culture X2, growing S aureus, see #7 Urine culture, growing MSSA and E coli Rocephin Tylenol PRN fever cbc w/ auto diff in the morning to trend WBC 3. Hypokalemia: RESOLVED Potassium replacement protocol Will check CMP daily to trend serum potassium level and will repeat replacement as needed Also will check serum Mg level and will replace as needed as well 4. Right clavicular dislocation: Consult Orthopedics Dr. Del Rio, recs. appreciated----> not surgical candidate. Weight bearing as tolerated. F/u [facility] outpatient Ibuprofen PRN mild pain Oxycodone PRN moderate pain 5. Anemia, normocytic normochromic: Likely secondary to chronic alcoholism cbc w/ auto diff in the morning to trend H/H; transfuse pRBC if hemoglobin <7.0, active bleeding, or symptomatic 6. Delirium tremens: CIWA protocol, measures to be provided for symptoms relief 7. S. aureus bacteremia: Initial blood culture grew S aureus. Sensitivity pending. Since Urine culture also grew MSSA, it makes sense to believe that the S. aureus in blood culture is also MSSA Repeat blood culture X2 2D echocardiogram to rule out endocardial vegetations Tylenol PRN fever Rocephin GI ppx: not currently indicated DVT ppx: Lovenox Code status: Full Prognosis: guarded Disposition: inpatient med surg Time Spent With Patient Time: Total time spent is greater than 50% in coordination of care (as documented) at patient's floor/unit and/or counseling patient: Total time spent with greater than 50% in coordination of care (as documented) at patient's floor/unit and/or counseling patient:: 25 - 35 minutes QUALITY VTE Deep Vein Thrombosis/Pulmonary Embolism Present on Admission: No
[2021-06-11] MEDS ORDERED: VANCOMYCIN 2,000 MG in 0.9 % SODIUM CHLORIDE 500 ML IV ONE (14:00)
[2021-06-11] MEDS ORDERED: VANCOMYCIN 1,500 MG in 0.9 % SODIUM CHLORIDE 500 ML IV ONE (14:00)
[2021-06-11] MEDS: ACETAMINOPHEN 325 MG TABLET PO PRN (16:50)
[2021-06-11] MEDS: LORazepam 1 MG TABLET PO PRN (20:35)
[2021-06-11] MEDS: SENNOSIDES 1 TABLET PO SCH (20:35)
[2021-06-11] MEDS ORDERED: VANCOMYCIN 1,000 MG in 0.9 % SODIUM CHLORIDE 250 ML IV ONE (23:00)
[2021-06-12] MEDS: 0.9 % SODIUM CHLORIDE 1,000 ML IV SCH (02:59)
[2021-06-12] MEDS: 0.9 % SODIUM CHLORIDE 10 ML SYRINGE IV SCH ×3 (06:10→22:22)
[2021-06-12 08:18] LABS: Basophils # (Auto) 0.08 K/mcL (0.00-0.30); Basophils % (Auto) 0.4 % (0.0-2.0); Eosinophils # (Auto) 0.07 K/mcL (0.00-0.70); Eosinophils % (Auto) 0.3 % (0.0-7.0); Hematocrit 32.8 % (40.1-51.0); Hemoglobin 11.9 g/dL (13.7-17.5); Lymphocytes # (Auto) 1.86 K/mcL (1.50-4.80); Lymphocytes % (Auto) 9.1 % (15.5-49.0); Mean Cell Volume 90.9 fL (80.0-100.0); Mean Corpuscular HGB Conc 36.3 g/dL (31.0-36.0); Mean Platelet Volume 9.6 fL (7.4-10.4); Monocytes # (Auto) 0.79 K/mcL (0.10-0.90); Monocytes % (Auto) 3.9 % (1.0-12.0); Platelet Count 327 K/mcL (140-440); RBC 3.61 M/mcL (4.63-6.08); Red Cell Distribution Width 13.6 % (11.5-14.5); WBC 20.5 K/mcL (4.5-11.0)
[2021-06-12 09:21] LABS: ALT/SGPT 222 U/L (<40); AST/SGOT 257 U/L (<40); Albumin 1.8 gm/dL (3.2-5.2); Albumin/Globulin Ratio 0.5 (1.0-2.3); Alkaline Phosphatase 89 U/L (39-117); Bilirubin,Total 0.7 mg/dL (0.1-1.0); Blood Urea Nitrogen 16 mg/dL (6-20); Calcium 7.2 mg/dL (8.6-10.4); Carbon Dioxide 22 mmol/L (22-30); Chloride 96 mmol/L (96-108); Globulin 3.8 gm/dL (2.2-3.7); Glomerular Filtration Rate 109; Glucose 80 mg/dL (70-105)
[2021-06-12] MEDS: cefTRIAXone 1 GM VIAL IV SCH (09:34)
[2021-06-12] MEDS: ENOXAPARIN 40 MG/0.4 ML SYRINGE SQ SCH (09:34)
[2021-06-12] MEDS: DOCUSATE SODIUM 100 MG CAPSULE PO SCH ×2 (09:35→20:36)
[2021-06-12] MEDS: ACETAMINOPHEN 325 MG TABLET PO PRN ×2 (09:35→20:36)
[2021-06-12 09:45] LABS: Neutrophils % (Auto) 86.3 % (38.0-78.0)
[2021-06-12] MEDS ORDERED: VANCOMYCIN 1,500 MG in 0.9 % SODIUM CHLORIDE 500 ML IV SCH (10:00)
[2021-06-12] MEDS ORDERED: VANCOMYCIN PER PHARMACY IV SCH (11:37)
--- NOTE | 2021-06-12 11:54 | Internal Med Progress Note ---
SUBJECTIVE Subjective Patient information: Note initiated : 06/12/21 at 11:49 am Service Date, if different from initiated Date: [] Patient: Saman Olson a 60 y/o M admitted on 06/08/21 for Weakness. Chief Complaint: [UTI, bacteremia, DT] Interval history: History of present illness: Mr. Olson is a 60 year old M history of chronic alcoholism and recent trauma of his right clavicle with resultant right clavicular dislocations, was brought by family to the ER because of general body weakness. Patient has a injury with right clavicular dislocati ons on May 27, 2021. Patient was being brought to [facility] yesterday for associated clavicular pain and he was being discharged home the same day from the ER. Today, patient fell for a week and he was unable to get up from toilet. As a result, patient was being brought by family members to our ER for further evaluation and treatment. His father stated that patient has a long history of alcoholism although in the past 3 to 4 days patient has not been consuming any alcohol at all. Vital signs upon ER presentation with normal limits. Labs significant for leukocytosis with WBC 28 as well as hyponatremia with sodium level 120 with unknown baseline. Serum alcohol level undetectable. Urinalysis suggest the presence of urinary tract infections. Chest x-ray does not reveal any signs of pneumonia. CT of the head no acute intracranial abnormalities. There is no focal neurological deficit. 06/09: Started to show symptoms of alcohol withdrawal overnight and hence CIWA protocol was started. CIWA score of 9 this morning. No seizure since admission. Subjective not obtained due to clinical situations. 06/10: Low grade fever Tmax 37.7 overnight. Urine culture growing S aureus and E coli. CIWA score 8 this morning. No seizure since admission. Patient denies anxiety or agitation. He denies any pain. He denies any hallucinations. 06/11: Low grade fever Tmax 37.9 overnight. Urine culture growing S aureus (menezes- sensitive) and E coli. Blood culture growing S. aureus, sensitivity pending. CIWA score 9 this morning. No seizure since admission. Patient denies anxiety or agitation. He denies any pain. He denies any hallucinations. 06/12: CIWA score of 2. Low grade fever Tmax 37.7 overnight. Urine culture (06/08) growing S aureus (menezes-sensitive) and E coli. Blood culture (06/08) growing S. aureus, sensitivity pending. Blood culture (06/11): gram positive cocci. No seizure since admission. Patient denies anxiety or agitation. He denies any pain. He denies any hallucinations. Constitutional Vitals: Vital Signs Temp Pulse Resp BP Pulse Ox 36.6 C 110 H 18 122/77 95 06/12/21 11:46 06/12/21 11:46 06/12/21 11:46 06/12/21 11:46 06/12/21 11:46 Period Temp Pulse Resp BP Sys/Herrera Pulse Ox Last 24 Hr 36.6 C-37.7 C 105-111 18-22 120-148/71-88 90-97 Intake and Output 06/11/21 06/12/21 06/12/21 21:59 05:59 13:59 Intake Total 1500 480 480 Output Total 1300 1400 Balance 200 -920 480 Weight 109.911 kg Intake & Output: Intake & Output 06/11/21 06/12/21 06/12/21 21:59 05:59 13:59 Intake Total 1500 480 480 Output Total 1300 1400 Balance 200 -920 480 Weight 109.911 kg Intake: IV 1500 Sodium Chloride 0.9% 1,000 ml @ 1000 75 mls/hr IV .[id number] [facility] Rx#: [id number] Vancomycin 1,500 mg In Sodium 500 Chloride 0.9% 500 ml @ 333.3 mls/hr IV ONCE ONE Rx#: [id number] Oral 480 480 Output: Urine Catheter Amount 1300 1400 Other: Meal Breakfast Percent of Meal Consumed 100% Feeding Ability Independent Urine Appearance Clear Clear Urine Color Dark Rachel Tea Colored Urine Odor Normal General appearance: cooperative and no acute distress Head Head exam: Present atraumatic and normocephalic Eye Eye exam: Present EOMI and PERRL ENT ENT exam: Present mucous membranes moist, normal exam and normal external ear exam Neck Neck exam: Present normal inspection; Absent lymphadenopathy, tenderness and thyromegaly Respiratory Respiratory exam: Absent accessory muscle use, respiratory distress and wheezes Cardiovascular Cardiovascular exam: Present normal rate and rhythm; Absent JVD GI/Abdominal GI/Abdominal exam: Present normal bowel sounds and soft; Absent organomegaly and tenderness Rectal Rectal exam: Present deferred Extremities Exam Extremities exam: Present full ROM, normal capillary refill and normal inspecti on; Absent tenderness Neurological Exam Neurological exam: Present alert, CN II-XII intact and oriented X3; Absent motor sensory deficit Psychiatric Psychiatric exam: Present normal affect and normal mood; Absent anxious and depressed Skin Skin exam: Present dry and intact OBJ DATA Labs CBC & Chem 7: 06/12/21 06:32 06/12/21 06:32 Labs: Abnormal Lab Results 06/12/21 06/12/21 06/11/21 06:32 06:32 06:04 WBC 20.5 H 17.6 H RBC 3.61 L 3.99 L Hgb 11.9 L 13.0 L Hct 32.8 L 37.0 L MCHC 36.3 H Neut % (Auto) 86.3 H 84.6 H Lymph % (Auto) 9.1 L 9.5 L [place] # (Auto) Absolute Neutrophils 17.68 H 14.83 H Sodium 131 L Chloride Carbon Dioxide BUN Creatinine 0.6 L Glucose Calcium 7.2 L Magnesium AST 257 H ALT 222 H Alkaline Phosphatase Total Protein 5.6 L Albumin 1.8 L Globulin 3.8 H Albumin/Globulin Ratio 0.5 L 06/11/21 06/10/21 06/10/21 06:03 12:16 06:11 WBC 15.4 H RBC 4.32 L Hgb Hct 39.7 L MCHC Neut % (Auto) 78.3 H Lymph % (Auto) 14.2 L [place] # (Auto) 1.07 H Absolute Neutrophils 12.05 H Sodium 132 L 132 L Chloride Carbon Dioxide 21 L BUN 24 H Creatinine 0.6 L 0.6 L Glucose 109 H Calcium 7.1 L 7.1 L Magnesium AST 413 H ALT 283 H Alkaline Phosphatase 160 H Total Protein 5.7 L Albumin 1.4 L Globulin 4.3 H Albumin/Globulin Ratio 0.3 L 06/10/21 06/10/21 06/09/21 06:10 00:55 18:17 WBC RBC Hgb Hct MCHC Neut % (Auto) Lymph % (Auto) [place] # (Auto) Absolute Neutrophils Sodium 132 L 132 L 126 L Chloride 92 L Carbon Dioxide BUN 30 H 34 H 31 H Creatinine Glucose Calcium 7.6 L 7.3 L 7.6 L Magnesium 3.7 H AST 239 H ALT 115 H Alkaline Phosphatase Total Protein Albumin 1.5 L Globulin 4.5 H Albumin/Globulin Ratio 0.3 L 06/09/21 12:17 WBC RBC Hgb Hct MCHC Neut % (Auto) Lymph % (Auto) [place] # (Auto) Absolute Neutrophils Sodium 128 L Chloride 90 L Carbon Dioxide BUN 30 H Creatinine Glucose Calcium 7.7 L Magnesium AST ALT Alkaline Phosphatase Total Protein Albumin Globulin Albumin/Globulin Ratio Meds: Medications Acetaminophen (Acetaminophen 325 Mg Tablet) 650 mg PO Q6HP PRN; Protocol PRN Reason: Per Pain Protocol/Fever > 101 Last Admin: 06/12/21 09:35 Dose: 650 mg Documented by: Ceftriaxone Sodium (Ceftriaxone 1 Gm Vial) 1 gm IV Q24H [facility] Last Admin: 06/12/21 09:34 Dose: 1 gm Documented by: Docusate Sodium (Docusate Sodium 100 Mg Capsule) 100 mg PO BID [facility] Last Admin: 06/12/21 09:35 Dose: 100 mg Documented by: Enoxaparin Sodium (Enoxaparin 40 Mg/0.4 Ml Syringe) 40 mg SQ DAILY [facility] Last Admin: 06/12/21 09:34 Dose: 40 mg Documented by: Hydroxyzine HCl (Hydroxyzine 25 Mg Tablet) 0 mg PO Q4HP PRN PRN Reason: Anxiety/Agitation Last Admin: 06/11/21 20:36 Dose: 50 mg Documented by: Vancomycin HCl 1,500 mg/ (Sodium Chloride) 500 mls @ 333.3 mls/hr IV Q12H [facility] Ibuprofen (Ibuprofen 600 Mg Tablet) 600 mg PO QIDP PRN; Protocol PRN Reason: Per Pain Protocol/Fever > 101 Last Admin: 06/10/21 14:52 Dose: 600 mg Documented by: Lorazepam (Lorazepam 1 Mg Tablet) 2 mg PO Q2HP PRN PRN Reason: CIWA-A >6 or HR >100 Last Admin: 06/11/21 20:35 Dose: 2 mg Documented by: Lorazepam (Lorazepam 2 Mg/Ml Vial) 1 mg IV ONCE PRN PRN Reason: Withdrawl Symptoms Ondansetron HCl (Ondansetron 4 Mg/2 Ml Vial) 4 mg IV Q6HP PRN PRN Reason: Nausea And Vomiting Oxycodone HCl (Oxycodone Hcl 5 Mg Tablet) 5 mg PO Q4HP PRN; Protocol PRN Reason: Per Pain Protocol Last Admin: 06/11/21 01:23 Dose: 5 mg Documented by: Senna (Sennosides 1 Tablet) 2 tab PO HS [facility] Last Admin: 06/11/21 20:35 Dose: 2 tab Documented by: Sodium Chloride (0.9 % Sodium Chloride 10 Ml Syringe) 10 ml IV Q8 [facility] Last Admin: 06/12/21 06:10 Dose: Not Given Documented by: Vancomycin HCl (Vancomycin Per Pharmacy) 1 order IV UD [facility]; Protocol Zolpidem Tartrate (Zolpidem 5 Mg Tablet) 5 mg PO HSP PRN PRN Reason: Insomnia ABG Interpretation ABG results: 06/08/21 07:50 ABG Methemoglobin 0.3 L VBG pH 7.47 H VBG pCO2 37.4 L VBG pO2 39.6 VBG HCO3 26.7 VBG Total CO2 27.8 VBG O2 Saturation 67.9 VBG Base Excess 3 A/P Assessment and plan (1) Acute hyponatremia: Status: Acute (2) Hypokalemia: Status: Acute (3) UTI (urinary tract infection): Status: Acute (4) Delirium tremens: Status: Acute (5) Anemia, normocytic normochromic: Status: Acute (6) Staphylococcus aureus bacteremia: Status: Acute Narrative A/P Narrative: Assessment and Plans: 1. Hyponatremia: Serum sodium level 131 this morning Unknown baseline as well as chronicity. 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 UTI: UA suggestive of UTI. CXR no signs of pneumonia Blood culture X2, growing S aureus, see #7 Urine culture, growing MSSA and E coli Rocephin Tylenol PRN fever cbc w/ auto diff in the morning to trend WBC 3. Hypokalemia: RESOLVED Potassium replacement protocol Will check CMP daily to trend serum potassium level and will repeat replacement as needed Also will check serum Mg level and will replace as needed as well 4. Right clavicular dislocation: Consult Orthopedics Dr. Del Rio, recs. appreciated----> not surgical candidate. Weight bearing as tolerated. F/u [facility] outpatient Ibuprofen PRN mild pain Oxycodone PRN moderate pain 5. Anemia, normocytic normochromic: Likely secondary to chronic alcoholism cbc w/ auto diff in the morning to trend H/H; transfuse pRBC if hemoglobin <7.0, active bleeding, or symptomatic 6. 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 S. aureus bacteremia: Urine culture (06/08) growing S aureus (menezes-sensitive) and E coli. Blood culture (06/08) growing S. aureus, sensitivity pending. Blood culture (06/11): gram positive cocci. Repeat blood culture on 06/13 2D echocardiogram to rule out endocardial vegetations, results pending Tylenol PRN fever Rocephin Since WBC keeps climbing, and repeat blood culture from 06/11 continue to be growing gram positive cocci, it could either be 1) presence of source of infection such as seeding from endocarditis, and 2) MRSA bacteremia not being adequately covered by Rocephin. Add Vancomycin for now until the sensitivity report from blood culture becomes available (so we can tell MRSA vs MSSA) GI ppx: not currently indicated DVT ppx: Lovenox Code status: Full Prognosis: guarded Disposition: inpatient med surg Time Spent With Patient Time: Total time spent is greater than 50% in coordination of care (as documented) at patient's floor/unit and/or counseling patient: QUALITY VTE Deep Vein Thrombosis/Pulmonary Embolism Present on Admission: No
[2021-06-12] MEDS: VANCOMYCIN 1,500 MG in 0.9 % SODIUM CHLORIDE 500 ML IV SCH ×2 (12:11→20:36)
[2021-06-12] MEDS: IBUPROFEN 600 MG TABLET PO PRN (12:51)
[2021-06-12] MEDS: SENNOSIDES 1 TABLET PO SCH (20:36)
[2021-06-12] MEDS: hydrOXYzine 25 MG TABLET PO PRN (21:21)
[2021-06-12] MEDS: NICOTINE 21 MG PATCH TOPICAL SCH (21:21)
[2021-06-12] MEDS ORDERED: NICOTINE 21 MG PATCH ONE (21:22)
[2021-06-12] MEDS: LORazepam 1 MG TABLET PO PRN (23:19)
[2021-06-13] MEDS: IBUPROFEN 600 MG TABLET PO PRN ×3 (01:33→14:15)
[2021-06-13] MEDS: LORazepam 1 MG TABLET PO PRN ×2 (01:40→03:29)
[2021-06-13] MEDS: hydrOXYzine 25 MG TABLET PO PRN (03:29)
[2021-06-13] MEDS: 0.9 % SODIUM CHLORIDE 10 ML SYRINGE IV SCH ×3 (06:01→20:36)
[2021-06-13] MEDS: NICOTINE 21 MG PATCH TOPICAL SCH (08:51)
[2021-06-13] MEDS: DOCUSATE SODIUM 100 MG CAPSULE PO SCH ×2 (08:51→20:36)
[2021-06-13] MEDS: cefTRIAXone 1 GM VIAL IV SCH (08:51)
[2021-06-13] MEDS ORDERED: VANCOMYCIN 1,500 MG in 0.9 % SODIUM CHLORIDE 500 ML IV SCH (10:00)
[2021-06-13 10:08] LABS: Basophils # (Auto) 0.09 K/mcL (0.00-0.30); Basophils % (Auto) 0.5 % (0.0-2.0); Eosinophils % (Auto) 0.6 % (0.0-7.0); Hemoglobin 11.2 g/dL (13.7-17.5); Lymphocytes # (Auto) 1.39 K/mcL (1.50-4.80); Lymphocytes % (Auto) 8.4 % (15.5-49.0); Mean Cell Volume 93.6 fL (80.0-100.0); Mean Platelet Volume 9.9 fL (7.4-10.4); Monocytes # (Auto) 0.49 K/mcL (0.10-0.90); Platelet Count 336 K/mcL (140-440); RBC 3.42 M/mcL (4.63-6.08); Red Cell Distribution Width 14.1 % (11.5-14.5); WBC 16.6 K/mcL (4.5-11.0)
[2021-06-13 10:15] LABS: ALT/SGPT 156 U/L (<40); AST/SGOT 140 U/L (<40); Albumin 1.8 gm/dL (3.2-5.2); Albumin/Globulin Ratio 0.5 (1.0-2.3); Alkaline Phosphatase 80 U/L (39-117); Bilirubin,Total 0.7 mg/dL (0.1-1.0); Blood Urea Nitrogen 15 mg/dL (6-20); Calcium 7.3 mg/dL (8.6-10.4); Carbon Dioxide 24 mmol/L (22-30); Chloride 95 mmol/L (96-108); Globulin 3.6 gm/dL (2.2-3.7); Glomerular Filtration Rate 117; Glucose 94 mg/dL (70-105)
[2021-06-13] MEDS: VANCOMYCIN 1,500 MG in 0.9 % SODIUM CHLORIDE 500 ML IV SCH (10:44)
[2021-06-13] MEDS: ENOXAPARIN 40 MG/0.4 ML SYRINGE SQ SCH (10:51)
--- NOTE | 2021-06-13 12:43 | Internal Med Progress Note ---
SUBJECTIVE Subjective Patient information: Note initiated : 06/13/21 at 12:38 pm Service Date, if different from initiated Date: [] Patient: Saman Olson a 60 y/o M admitted on 06/08/21 for Weakness. Chief Complaint: [Delirium tremens, UTI, bacteremia] Interval history: History of present illness: Mr. Olson is a 60 year old M history of chronic alcoholism and recent trauma of his right clavicle with resultant right clavicular dislocations, was brought by family to the ER because of general body weakness. Patient has a injury with right clavicular dislocations on May 27, 2021. Patient was being brought to [facility] yesterday for associated clavicular pain and he was being discharged home the same day from the ER. Today, patient fell for a week and he was unable to get up from toilet. As a result, patient was being brought by family members to our ER for further evaluation and treatment. His father stated that patient has a long history of alcoholism although in the past 3 to 4 days patient has not been consuming any alcohol at all. Vital signs upon ER presentation with normal limits. Labs significant for leukocytosis with WBC 28 as well as hyponatremia with sodium level 120 with unknown baseline. Serum alcohol level undetectable. Urinalysis suggest the presence of urinary tract infections. Chest x-ray does not reveal any signs of pneumonia. CT of the head no acute intracranial abnormalities. There is no focal neurological deficit. 06/09: Started to show symptoms of alcohol withdrawal overnight and hence CIWA protocol was started. CIWA score of 9 this morning. No seizure since admission. Subjective not obtained due to clinical situations. 06/10: Low grade fever Tmax 37.7 overnight. Urine culture growing S aureus and E coli. CIWA score 8 this morning. No seizure since admission. Patient denies anxiety or agitation. He denies any pain. He denies any hallucinations. 06/11: Low grade fever Tmax 37.9 overnight. Urine culture growing S aureus (menezes- sensitive) and E coli. Blood culture growing S. aureus, sensitivity pending. CIWA score 9 this morning. No seizure since admission. Patient denies anxiety or agitation. He denies any pain. He denies any hallucinations. 06/12: CIWA score of 2. Low grade fever Tmax 37.7 overnight. Urine culture (06/08) growing S aureus (menezes-sensitive) and E coli. Blood culture (06/08) growing S. aureus, sensitivity pending. Blood culture (06/11): gram positive cocci. No seizure since admission. Patient denies anxiety or agitation. He denies any pain. He denies any hallucinations. 06/12: Afebrile overnight. Urine culture: MSSA and E coli. Blood culture from 06/08: MSSA. Blood culture from 06/11: S aureus, sensitivity pending. 2D echocardiogram reports pending. No seizure since admission. Patient denies anxiety or agitation. He denies any pain. He denies any hallucinations. Constitutional Vitals: Vital Signs Temp Pulse Resp BP Pulse Ox 36.4 C 88 18 102/64 96 06/13/21 11:17 06/13/21 11:17 06/13/21 11:17 06/13/21 11:17 06/13/21 11:17 Period Temp Pulse Resp BP Sys/Herrera Pulse Ox Last 24 Hr 36.1 C-36.4 C 82-103 16-18 91-127/56-81 3-97 Intake and Output 06/12/21 06/13/21 06/13/21 21:59 05:59 13:59 Intake Total 500 1940 Output Total 800 900 Balance -300 1040 Weight 112.899 kg 112.899 kg Patient Weight 06/14/21 05:59 Weight 112.899 kg Intake & Output: Intake & Output 06/12/21 06/13/21 06/13/21 21:59 05:59 13:59 Intake Total 500 1940 Output Total 800 900 Balance -300 1040 Weight 112.899 kg 112.899 kg Intake: IV 500 500 Vancomycin 1,500 mg In Sodium 500 500 Chloride 0.9% 500 ml @ 333.3 mls/hr IV Q12H [facility] Rx#: [id number] Oral 1440 Output: Urine Catheter Amount 800 900 Other: Urine Appearance Clear Clear Uretheral ([place]) Cloudy Urine Color Dark Yellow Dark Rachel Uretheral ([place]) Light Rachel General appearance: cooperative and no acute distress Head Head exam: Present atraumatic and normocephalic Eye Eye exam: Present EOMI and PERRL ENT ENT exam: Present mucous membranes moist, normal exam and normal external ear exam Neck Neck exam: Present normal inspection; Absent lymphadenopathy, tenderness and thyromegaly Respiratory Respiratory exam: Absent accessory muscle use, respiratory distress and wheezes Cardiovascular Cardiovascular exam: Present normal rate and rhythm; Absent JVD GI/Abdominal GI/Abdominal exam: Present normal bowel sounds and soft; Absent organomegaly and tenderness Rectal Rectal exam: Present deferred Extremities Exam Extremities exam: Present full ROM, normal capillary refill and normal inspection; Absent tenderness Neurological Exam Neurological exam: Present alert and CN II-XII intact; Absent motor sensory deficit and oriented X3 Additional comments: Oriented X2 to person and place only Psychiatric Psychiatric exam: Present normal affect and normal mood; Absent anxious and depressed Skin Skin exam: Present dry and intact OBJ DATA Labs CBC & Chem 7: 06/13/21 05:28 06/13/21 05:28 Labs: Abnormal Lab Results 06/13/21 06/13/21 06/12/21 05:28 05:28 06:32 WBC 16.6 H RBC 3.42 L Hgb 11.2 L Hct 32.0 L MCHC Neut % (Auto) 87.5 H Lymph % (Auto) 8.4 L Lymph # (Auto) 1.39 L Absolute Neutrophils 14.53 H Sodium 128 L 131 L Potassium 3.2 L Chloride 95 L Carbon Dioxide BUN Creatinine 0.5 L 0.6 L Glucose Calcium 7.3 L 7.2 L AST 140 H 257 H ALT 156 H 222 H Alkaline Phosphatase Total Protein 5.4 L 5.6 L Albumin 1.8 L 1.8 L Globulin 3.8 H Albumin/Globulin Ratio 0.5 L 0.5 L 06/12/21 06/11/21 06/11/21 06:32 06:04 06:03 WBC 20.5 H 17.6 H RBC 3.61 L 3.99 L Hgb 11.9 L 13.0 L Hct 32.8 L 37.0 L MCHC 36.3 H Neut % (Auto) 86.3 H 84.6 H Lymph % (Auto) 9.1 L 9.5 L Lymph # (Auto) Absolute Neutrophils 17.68 H 14.83 H Sodium 132 L Potassium Chloride Carbon Dioxide BUN Creatinine 0.6 L Glucose Calcium 7.1 L AST 413 H ALT 283 H Alkaline Phosphatase 160 H Total Protein 5.7 L Albumin 1.4 L Globulin 4.3 H Albumin/Globulin Ratio 0.3 L 06/10/21 12:16 WBC RBC Hgb Hct MCHC Neut % (Auto) Lymph % (Auto) Lymph # (Auto) Absolute Neutrophils Sodium 132 L Potassium Chloride Carbon Dioxide 21 L BUN 24 H Creatinine 0.6 L Glucose 109 H Calcium 7.1 L AST ALT Alkaline Phosphatase Total Protein Albumin Globulin Albumin/Globulin Ratio Meds: Medications Acetaminophen (Acetaminophen 325 Mg Tablet) 650 mg PO Q6HP PRN; Protocol PRN Reason: Per Pain Protocol/Fever > 101 Last Admin: 06/12/21 20:36 Dose: 650 mg Documented by: Ceftriaxone Sodium (Ceftriaxone 1 Gm Vial) 1 gm IV Q24H [facility] Last Admin: 06/13/21 08:51 Dose: 1 gm Documented by: Docusate Sodium (Docusate Sodium 100 Mg Capsule) 100 mg PO BID [facility] Last Admin: 06/13/21 08:51 Dose: 100 mg Documented by: Enoxaparin Sodium (Enoxaparin 40 Mg/0.4 Ml Syringe) 40 mg SQ DAILY [facility] Last Admin: 06/13/21 10:51 Dose: Not Given Documented by: Hydroxyzine HCl (Hydroxyzine 25 Mg Tablet) 0 mg PO Q4HP PRN PRN Reason: Anxiety/Agitation Last Admin: 06/13/21 03:29 Dose: 50 mg Documented by: Ibuprofen (Ibuprofen 600 Mg Tablet) 600 mg PO QIDP PRN; Protocol PRN Reason: Per Pain Protocol/Fever > 101 Last Admin: 06/13/21 08:51 Dose: 600 mg Documented by: Lorazepam (Lorazepam 1 Mg Tablet) 2 mg PO Q2HP PRN PRN Reason: CIWA-A >6 or HR >100 Last Admin: 06/13/21 03:29 Dose: 2 mg Documented by: Lorazepam (Lorazepam 2 Mg/Ml Vial) 1 mg IV ONCE PRN PRN Reason: Withdrawl Symptoms Nicotine (Nicotine 21 Mg Patch) 21 mg TOPICAL DAILY@1000 [facility] Last Admin: 06/13/21 08:51 Dose: 21 mg Documented by: Ondansetron HCl (Ondansetron 4 Mg/2 Ml Vial) 4 mg IV Q6HP PRN PRN Reason: Nausea And Vomiting Oxycodone HCl (Oxycodone Hcl 5 Mg Tablet) 5 mg PO Q4HP PRN; Protocol PRN Reason: Per Pain Protocol Last Admin: 06/11/21 01:23 Dose: 5 mg Documented by: Senna (Sennosides 1 Tablet) 2 tab PO HS [facility] Last Admin: 06/12/21 20:36 Dose: 2 tab Documented by: Sodium Chloride (0.9 % Sodium Chloride 10 Ml Syringe) 10 ml IV Q8 [facility] Last Admin: 06/13/21 06:01 Dose: Not Given Documented by: Zolpidem Tartrate (Zolpidem 5 Mg Tablet) 5 mg PO HSP PRN PRN Reason: Insomnia ABG Interpretation ABG results: 06/08/21 07:50 ABG Methemoglobin 0.3 L VBG pH 7.47 H VBG pCO2 37.4 L VBG pO2 39.6 VBG HCO3 26.7 VBG Total CO2 27.8 VBG O2 Saturation 67.9 VBG Base Excess 3 A/P Assessment and plan (1) Acute hyponatremia: Status: Acute (2) Hypokalemia: Status: Acute (3) UTI (urinary tract infection): Status: Acute (4) Delirium tremens: Status: Acute (5) Anemia, normocytic normochromic: Status: Acute (6) Staphylococcus aureus bacteremia: Status: Acute Narrative A/P Narrative: Assessment and Plans: 1. Hyponatremia: Serum sodium level 128 this morning Unknown baseline as well as chronicity. 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 UTI: UA suggestive of UTI. Urine culture, growing MSSA and E coli Blood culture from 06/08: MSSA. Blood culture from 06/11: S aureus, sensitivity pending. Continue Rocephin Tylenol PRN fever cbc w/ auto diff in the morning to trend WBC 3. Hypokalemia: Potassium replacement protocol Will check CMP daily to trend serum potassium level and will repeat replacement as needed Also will check serum Mg level and will replace as needed as well 4. Right clavicular dislocation: Consult Orthopedics Dr. Del Rio, recs. appreciated----> not surgical candidate. Weight bearing as tolerated. F/u [facility] outpatient Ibuprofen PRN mild pain Oxycodone PRN moderate pain 5. Anemia, normocytic normochromic: Likely secondary to chronic alcoholism cbc w/ auto diff in the morning to trend H/H; transfuse pRBC if hemoglobin <7.0, active bleeding, or symptomatic 6. 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 S. aureus bacteremia: Blood culture from 06/08: MSSA. Blood culture from 06/11: S aureus, sensitivity pending. Repeat blood culture on 06/13 2D echocardiogram to rule out endocardial vegetations, results pending Tylenol PRN fever Rocephin Continue Rocephin d/c Vancomycin since blood culture is MSSA menezes sensitive GI ppx: not currently indicated DVT ppx: Lovenox Code status: Full Prognosis: guarded Disposition: inpatient med surg Time Spent With Patient Time: Total time spent is greater than 50% in coordination of care (as documente d) at patient's floor/unit and/or counseling patient: QUALITY VTE Deep Vein Thrombosis/Pulmonary Embolism Present on Admission: No
[2021-06-13] MEDS ORDERED: POTASSIUM CHLORIDE 20 MEQ in DEXTROSE 5% IN WATER 250 ML IV ONE (13:00)
[2021-06-13 14:39] LABS: Neutrophils % (Auto) 87.5 % (38.0-78.0)
[2021-06-13] MEDS: SENNOSIDES 1 TABLET PO SCH (20:36)
[2021-06-14] MEDS: IBUPROFEN 600 MG TABLET PO PRN ×2 (00:38→15:11)
[2021-06-14] MEDS: 0.9 % SODIUM CHLORIDE 10 ML SYRINGE IV SCH ×2 (05:54→14:30)
[2021-06-14 07:34] LABS: Basophils # (Auto) 0.05 K/mcL (0.00-0.30); Basophils % (Auto) 0.4 % (0.0-2.0); Eosinophils % (Auto) 0.8 % (0.0-7.0); Hematocrit 28.5 % (40.1-51.0); Lymphocytes # (Auto) 1.79 K/mcL (1.50-4.80); Lymphocytes % (Auto) 13.7 % (15.5-49.0); Mean Cell Volume 92.5 fL (80.0-100.0); Mean Corpuscular HGB Conc 35.1 g/dL (31.0-36.0); Mean Platelet Volume 9.9 fL (7.4-10.4); Monocytes # (Auto) 0.61 K/mcL (0.10-0.90); Monocytes % (Auto) 4.7 % (1.0-12.0); Neutrophils % (Auto) 80.4 % (38.0-78.0); Platelet Count 457 K/mcL (140-440); RBC 3.08 M/mcL (4.63-6.08); Red Cell Distribution Width 13.7 % (11.5-14.5)
[2021-06-14] MEDS: ENOXAPARIN 40 MG/0.4 ML SYRINGE SQ SCH (08:07)
[2021-06-14] MEDS: DOCUSATE SODIUM 100 MG CAPSULE PO SCH ×2 (08:07→20:29)
[2021-06-14] MEDS: cefTRIAXone 1 GM VIAL IV SCH (08:07)
[2021-06-14] MEDS: ACETAMINOPHEN 325 MG TABLET PO PRN (08:08)
[2021-06-14 08:14] LABS: ALT/SGPT 107 U/L (<40); AST/SGOT 83 U/L (<40); Albumin 1.5 gm/dL (3.2-5.2); Albumin/Globulin Ratio 0.4 (1.0-2.3); Alkaline Phosphatase 69 U/L (39-117); Bilirubin,Total 0.6 mg/dL (0.1-1.0); Blood Urea Nitrogen 11 mg/dL (6-20); Calcium 7.4 mg/dL (8.6-10.4); Carbon Dioxide 21 mmol/L (22-30); Chloride 98 mmol/L (96-108); Glomerular Filtration Rate 128; Glucose 93 mg/dL (70-105)
[2021-06-14 08:22] LABS: WBC 13.1 K/mcL (4.5-11.0)
[2021-06-14] MEDS: NICOTINE 21 MG PATCH TOPICAL SCH (10:03)
--- NOTE | 2021-06-14 12:35 | Internal Med Progress Note ---
SUBJECTIVE Subjective Patient information: Note initiated : 06/14/21 at 12:27 pm Service Date, if different from initiated Date: [] Patient: Saman Olson a 60 y/o M admitted on 06/08/21 for Weakness. Chief Complaint: [DT, bacteremia, UTI] Interval history: History of present illness: Mr. Olson is a 60 year old M history of chronic alcoholism and recent trauma of his right clavicle with resultant right clavicular dislocations, was brought by family to the ER because of general body weakness. Patient has a injury with right clavicular dislocati ons on May 27, 2021. Patient was being brought to [facility] yesterday for associated clavicular pain and he was being discharged home the same day from the ER. Today, patient fell for a week and he was unable to get up from toilet. As a result, patient was being brought by family members to our ER for further evaluation and treatment. His father stated that patient has a long history of alcoholism although in the past 3 to 4 days patient has not been consuming any alcohol at all. Vital signs upon ER presentation with normal limits. Labs significant for leukocytosis with WBC 28 as well as hyponatremia with sodium level 120 with unknown baseline. Serum alcohol level undetectable. Urinalysis suggest the presence of urinary tract infections. Chest x-ray does not reveal any signs of pneumonia. CT of the head no acute intracranial abnormalities. There is no focal neurological deficit. 06/09: Started to show symptoms of alcohol withdrawal overnight and hence CIWA protocol was started. CIWA score of 9 this morning. No seizure since admission. Subjective not obtained due to clinical situations. 06/10: Low grade fever Tmax 37.7 overnight. Urine culture growing S aureus and E coli. CIWA score 8 this morning. No seizure since admission. Patient denies anxiety or agitation. He denies any pain. He denies any hallucinations. 06/11: Low grade fever Tmax 37.9 overnight. Urine culture growing S aureus (menezes- sensitive) and E coli. Blood culture growing S. aureus, sensitivity pending. CIWA score 9 this morning. No seizure since admission. Patient denies anxiety or agitation. He denies any pain. He denies any hallucinations. 06/12: CIWA score of 2. Low grade fever Tmax 37.7 overnight. Urine culture (06/08) growing S aureus (menezes-sensitive) and E coli. Blood culture (06/08) growing S. aureus, sensitivity pending. Blood culture (06/11): gram positive cocci. No seizure since admission. Patient denies anxiety or agitation. He denies any pain. He denies any hallucinations. 06/13: Afebrile overnight. Urine culture: MSSA and E coli. Blood culture from 06/08: MSSA. Blood culture from 06/11: S aureus, sensitivity pending. 2D echocardiogram reports pending. No seizure since admission. Patient denies anxiety or agitation. He denies any pain. He denies any hallucinations. 06/14: Afebrile overnight. Urine culture: MSSA and E coli. Blood culture from 06/08: MSSA. Blood culture from 06/11: MSSA, sensitivity pending. Blood culture from 06/13: gram positive cocci. 2D echocardiogram no signs of endocarditis. No seizure since admission. Patient denies anxiety or agitation. He denies any pain. He denies any hallucinations. He is currently c/o lower back pain. Constitutional Vitals: Vital Signs Temp Pulse Resp BP Pulse Ox 36.3 C 80 20 146/83 96 06/14/21 08:00 06/14/21 08:00 06/14/21 08:00 06/14/21 08:00 06/14/21 08:00 Period Temp Pulse Resp BP Sys/Herrera Pulse Ox Last 24 Hr 36.1 C-37.9 C 76-103 16-20 106-146/64-83 96-99 Intake and Output 06/13/21 06/14/21 06/14/21 21:59 05:59 13:59 Intake Total 1310 1560 420 Output Total 625 1750 850 Balance 685 -190 -430 Weight 113.58 kg Intake & Output: Intake & Output 06/13/21 06/14/21 06/14/21 21:59 05:59 13:59 Intake Total 1310 1560 420 Output Total 625 1750 850 Balance 685 -190 -430 Weight 113.58 kg Intake: IV 760 Potassium Chloride 20 Meq In 260 Dextrose 5% in Water 250 ml @ 130 mls/hr IV ONCE ONE Rx#: [id number] Vancomycin 1,500 mg In Sodium 500 Chloride 0.9% 500 ml @ 333.3 mls/hr IV Q8H [facility] Rx#:[id number] Oral 550 1560 420 Output: Urine Catheter Amount [id number] Other: Meal Breakfast Percent of Meal Consumed 75% 75% Feeding Ability Independent Assist with Tray Set Up Urine Appearance Clear Clear Uretheral ([place]) Cloudy Clear Urine Color Dark Rachel Light Rachel Light Rachel Uretheral ([place]) Dark Rachel Urine Odor Strong General appearance: cooperative and no acute distress Head Head exam: Present atraumatic and normocephalic Eye Eye exam: Present EOMI and PERRL ENT ENT exam: Present mucous membranes moist, normal exam and normal external ear exam Neck Neck exam: Present normal inspection; Absent lymphadenopathy, tenderness and thyromegaly Respiratory Respiratory exam: Absent accessory muscle use, respiratory distress and wheezes Cardiovascular Cardiovascular exam: Present normal rate and rhythm; Absent JVD GI/Abdominal GI/Abdominal exam: Present normal bowel sounds and soft; Absent organomegaly and tenderness Rectal Rectal exam: Present deferred Extremities Exam Extremities exam: Present full ROM, normal capillary refill and normal inspection; Absent tenderness Back Exam Back exam: Present tenderness Neurological Exam Neurological exam: Present alert, CN II-XII intact and oriented X3; Absent motor sensory deficit Psychiatric Psychiatric exam: Present normal affect and normal mood; Absent anxious and depressed Skin Skin exam: Present dry and intact OBJ DATA Labs CBC & Chem 7: 06/14/21 06:06 06/14/21 06:06 Labs: Abnormal Lab Results 06/14/21 06/14/21 06/13/21 06:06 06:06 05:28 WBC 13.1 H RBC 3.08 L Hgb 10.0 L Hct 28.5 L MCHC Plt Count 457 H Neut % (Auto) 80.4 H Lymph % (Auto) 13.7 L Lymph # (Auto) Absolute Neutrophils 10.54 H Sodium 128 L 128 L Potassium 3.2 L Chloride 95 L Carbon Dioxide 21 L Creatinine 0.4 L 0.5 L Calcium 7.4 L 7.3 L AST 83 H 140 H ALT 107 H 156 H Total Protein 5.5 L 5.4 L Albumin 1.5 L 1.8 L Globulin 4.0 H Albumin/Globulin Ratio 0.4 L 0.5 L 06/13/21 06/12/21 06/12/21 05:28 06:32 06:32 WBC 16.6 H 20.5 H RBC 3.42 L 3.61 L Hgb 11.2 L 11.9 L Hct 32.0 L 32.8 L MCHC 36.3 H Plt Count Neut % (Auto) 87.5 H 86.3 H Lymph % (Auto) 8.4 L 9.1 L Lymph # (Auto) 1.39 L Absolute Neutrophils 14.53 H 17.68 H Sodium 131 L Potassium Chloride Carbon Dioxide Creatinine 0.6 L Calcium 7.2 L AST 257 H ALT 222 H Total Protein 5.6 L Albumin 1.8 L Globulin 3.8 H Albumin/Globulin Ratio 0.5 L Meds: Medications Acetaminophen (Acetaminophen 325 Mg Tablet) 650 mg PO Q6HP PRN; Protocol PRN Reason: Per Pain Protocol/Fever > 101 Last Admin: 06/14/21 08:08 Dose: 650 mg Documented by: Docusate Sodium (Docusate Sodium 100 Mg Capsule) 100 mg PO BID [facility] Last Admin: 06/14/21 08:07 Dose: 100 mg Documented by: Enoxaparin Sodium (Enoxaparin 40 Mg/0.4 Ml Syringe) 40 mg SQ DAILY [facility] Last Admin: 06/14/21 08:07 Dose: 40 mg Documented by: Hydroxyzine HCl (Hydroxyzine 25 Mg Tablet) 0 mg PO Q4HP PRN PRN Reason: Anxiety/Agitation Last Admin: 06/13/21 03:29 Dose: 50 mg Documented by: Nafcillin Sodium 2 gm/ Sodium (Chloride) 50 mls @ 100 mls/hr IV Q4H [facility]; Protocol Ibuprofen (Ibuprofen 600 Mg Tablet) 600 mg PO QIDP PRN; Protocol PRN Reason: Per Pain Protocol/Fever > 101 Last Admin: 06/14/21 00:38 Dose: 600 mg Documented by: Nicotine (Nicotine 21 Mg Patch) 21 mg TOPICAL DAILY@1000 [facility] Last Admin: 06/14/21 10:03 Dose: 21 mg Documented by: Ondansetron HCl (Ondansetron 4 Mg/2 Ml Vial) 4 mg IV Q6HP PRN PRN Reason: Nausea And Vomiting Oxycodone HCl (Oxycodone Hcl 5 Mg Tablet) 5 mg PO Q4HP PRN; Protocol PRN Reason: Per Pain Protocol Last Admin: 06/11/21 01:23 Dose: 5 mg Documented by: Senna (Sennosides 1 Tablet) 2 tab PO [facility] Last Admin: 06/13/21 20:36 Dose: 2 tab Documented by: Sodium Chloride (0.9 % Sodium Chloride 10 Ml Syringe) 10 ml IV Q8 [facility] Last Admin: 06/14/21 05:54 Dose: Not Given Documented by: Zolpidem Tartrate (Zolpidem 5 Mg Tablet) 5 mg PO HSP PRN PRN Reason: Insomnia ABG Interpretation ABG results: 06/08/21 07:50 ABG Methemoglobin 0.3 L VBG pH 7.47 H VBG pCO2 37.4 L VBG pO2 39.6 VBG HCO3 26.7 VBG Total CO2 27.8 VBG O2 Saturation 67.9 VBG Base Excess 3 A/P Assessment and plan (1) Acute hyponatremia: Status: Acute (2) Hypokalemia: Status: Acute (3) UTI (urinary tract infection): Status: Acute (4) Delirium tremens: Status: Acute (5) Anemia, normocytic normochromic: Status: Acute (6) Staphylococcus aureus bacteremia: Status: Acute Narrative A/P Narrative: Assessment and Plans: 1. Hyponatremia: Serum sodium level 128 this morning Unknown baseline as well as chronicity. Likely secondary to chronic alcoholism Check TSH with reflexive free T4: 0.30 Stays in inpatient med surg with telemetry [employer]ine lock [employer] patient on quitting alcohol consumption CMP daily to trend serum sodium level 2. UTI: UA suggestive of UTI. Urine culture, growing MSSA and E coli Blood culture from 06/08: MSSA. Blood culture from 06/11: S aureus, sensitivity pending. Finished Rocephin Tylenol PRN fever cbc w/ auto diff in the morning to trend WBC 3. Hypokalemia: Potassium replacement protocol Will check CMP daily to trend serum potassium level and will repeat replacement as needed Also will check serum Mg level and will replace as needed as well 4. Right clavicular dislocation: Consult Orthopedics Dr. Del Rio, recs. appreciated----> not surgical candidate. Weight bearing as tolerated. F/u [facility] outpatient Ibuprofen PRN mild pain Oxycodone PRN moderate pain 5. Anemia, normocytic normochromic: Likely secondary to chronic alcoholism cbc w/ auto diff in the morning to trend H/H; transfuse pRBC if hemoglobin <7.0, active bleeding, or symptomatic 6. Delirium tremens: RESOLVED d/c CIWA protocol Saline [employer] patient on quitting alcohol consumption Okay to d/c cardiac monitoring 7. MSSA bacteremia: Blood culture from 06/08: MSSA. Blood culture from 06/11: MSSA Repeat blood culture on 06/13, gram positive cocci 2D echocardiogram no signs of endocardial vegetations Tylenol PRN fever Finished Rocephin Nafcillin 2gm IV q4hr Consult ID Dr. Mixon, recs. appreciated CT abdomen pelvis w/ w/o CT thoracic and lumbar spine w/ w/o GI ppx: not currently indicated DVT ppx: Lovenox Code status: Full Prognosis: guarded Disposition: inpatient med surg Time Spent With Patient Time: Total time spent is greater than 50% in coordination of care (as documented) at patient's floor/unit and/or counseling patient: QUALITY VTE Deep Vein Thrombosis/Pulmonary Embolism Present on Admission: No
[2021-06-14] MEDS: NAFCILLIN 2 GM in 0.9 % SODIUM CHLORIDE 50 ML IV SCH ×3 (13:59→20:27)
[2021-06-14] MEDS ORDERED: IOPAMIDOL 100 ML BOTTLE IV ONE ×2 (14:52→15:12)
--- NOTE | 2021-06-14 15:44 | Cat Scan Report ---
History: Bacteremia with weakness and back pain TECHNIQUE: Following injection of intravenous nonionic contrast the patient was scanned from the level of the larynx through the symphysis pubis. Sagittal and coronal reformats are created along with axial MIPS images of the chest. Radiation exposure was limited using dose reduction technology. FINDINGS: CHEST: Patient has multiloculated abscesses at the thoracic inlet. There is one component involving the distal portion of the sternocleidomastoid muscle. This intramuscular abscess measures 4.8 x 5.6 cm in transverse dimension and contains a few small bubbles of gas. There is mild inflammation at the distal end of the left sternocleidomastoid muscle above the clavicle. This pocket measures 2.4 x 2.6 cm. There is also an abscess in the right pectoralis minor muscle which measures 3.0 x 7.5 cm. There is mild myositis in the left pectoralis minor muscle. There is no involvement in the visualized portion of the larynx. Trachea is normal. There is a large abscess in the anterior mediastinum. It extends from the thoracic inlet, down to the mid body of the sternum. The largest component is behind the manubrium where it measures 3.7 x 4.9 cm in transverse dimension. It is low 11.5 cm in length. This abscess contains bubbles of gas. There is compression of the innominate vein between the abscess and the adjacent aortic arch. Innominate vein is not thrombosed. No collateral veins have yet developed. Tiny bilateral layering pleural effusions are present. There are a few bands of discoid atelectasis in both lung bases. There is no evidence of pneumonia or lung abscess. No pericardial effusion is present. The heart size is normal. Abdomen and pelvis: The liver and spleen are normal in size and homogeneous. The gallbladder is contracted and contains some sludge and tiny stones. The bile ducts are nondilated. The pancreas is normal without evidence of a mass or inflammation. There is a small lipid-containing nodule in left adrenal which is less than 1 cm in size. The adrenals are otherwise normal. Kidneys are normal in size shape and contour without evidence of inflammation or stone. Scattered plaques are present along the wall of normal caliber abdominal aorta and iliac arteries. Urinary bladder is normal. There are couple noninflamed diverticula in the sigmoid colon. There is no evidence of inflammatory bowel disease. No abscess mass or ascites are present in the abdomen or pelvis. There is a [place] catheter in the bladder. Bone windows show no evidence of discitis or osteomyelitis in the thoracic or lumbar spine. There is moderate disc space narrowing at L4-5 and milder narrowing at L3-4. Severe spinal canal stenosis is present at L3-4, largely due to osteophytes. No paraspinal abscess is present. IMPRESSION: Multiple abscesses in the thoracic inlet and anterior chest wall involving the sternocleidomastoid and pectoralis muscles. Large Substernal abscess. No evidence of discitis or osteomyelitis Spinal canal stenosis at L3-4 due to degenerative changes Dr. Mendoza was called with the report Interpreted and Authenticated by: Jose Snider 06/14/21
--- NOTE | 2021-06-14 19:43 | Discharge Summary ---
Discharge Provider Provider Patient information: Note initiated : 06/14/21 at 7:41 pm Service Date, if different from initiated Date: [] Patient: Saman Olson 60 y/o M admitted on 06/08/21 for Weakness. Chief Complaint: [Delirium tremens, UTI, bacteremia, and intramuscular abscesses] Date of admission: 06/08/21 17:25 Discharge date: 06/14/21 Primary care physician: PCP No Consults: 06/08/21 Consult to Physician [CONS] Stat Comment: Consulting Provider: Sergio Mendoza Reason For Exam: Physician to Consult 06/08/21 18:17 Consult to Physician [CONS] Stat Comment: R clavicular dislocation Consulting Provider: Johan Del Rio Reason For Exam: Physician to Consult 06/14/21 12:15 Consult to Physician [CONS] Routine Comment: ongoing bacteremia Consulting Provider: Julio C Mixon Reason For Exam: Physician to Consult Discharge Meds Discharge Medications Home Medications No Known Home Meds 06/08/21 [History Confirmed 06/08/21 Last Taken Unknown] COURSE Hospital Course Hospital course: Delirium tremens: Patient was started on CIWA protocol and IV fluid with banana bags, symptomatic measures including Ativan and for symptom control were all provided and patient have a gradual course of recovery from delirium tremors and by June 12, 2021, patient was out of the delirium tremens face and mental status back to baseline. Hyponatremia: IV fluids with banana bags and normal saline was being administered and frequent BMP checks were performed to make sure serum sodium level was not being corrected too quickly to avoid neurological consequences. Sepsis with multiple sources of infections: Initial urinalysis suggest patient has urinary tract infections so patient was started with Rocephin. Urine cu lture later grew MSSA as well as E. coli. Blood culture later also grew MSSA. Rocephin was continued while blood culture will repeated multiple times on the as well as on the . Both blood cultures continue to grew MSSA. Endocarditis was being ruled out by echocardiogram. Vancomycin was transiently administered until the identity of the MSSA was proven. Antibiotics eventually being changed to nafcillin on June 14, 2021. As part of the investigations to look for hidden source of infections, whole-body CT with and without contrast was performed and it shows multiple intramuscular abscess in the SCM muscles as well as behind the sternum. At this point, ENT and CT surgeons consultations were indicated and patient's was to be transferred to [facility] with attending physicians Dr. Valencia. Discharge diagnosis: UTI, DT, bacteremia, intramuscular abscesses Time Spent with Patient Time attestation: Total time spent providing and/or coordinating discharge services: Delirium tremens: Patient was started on CIWA protocol and IV fluid with banana bags, symptomatic measures including Ativan and for symptom control were all provided and patient have a gradual course of recovery from delirium tremors and by June 12, 2021, patient was out of the delirium tremens face and mental status back to baseline. Hyponatremia: IV fluids with banana bags and normal saline was being administered and frequent BMP checks were performed to make sure serum sodium level was not being corrected too quickly to avoid neurological consequences. Sepsis with multiple sources of infections: Initial urinalysis suggest patient has urinary tract infections so patient was started with Rocephin. Urine culture later grew MSSA as well as E. coli. Blood culture later also grew MSSA. Rocephin was continued while blood culture will repeated multiple times on the as well as on the . Both blood cultures continue to grew MSSA. Endocarditis was being ruled out by echocardiogram. Vancomycin was transiently administered until the identity of the MSSA was proven. Antibiotics eventually being changed to nafcillin on June 14, 2021. As part of the investigations to look for hidden source of infections, whole-body CT with and without contrast was performed and it shows multiple intramuscular abscess in the SCM muscles as well as behind the sternum. At this point, ENT and CT surgeons consultations were indicated and patient's was to be transferred to [facility] with attending physicians Dr. Valencia. EXAM Constitutional Vitals: Temp Pulse Resp BP Pulse Ox 37.2 C 90 22 120/80 95 06/14/21 16:00 06/14/21 16:00 06/14/21 16:00 06/14/21 16:06/14/21 16:00 General appearance: cooperative and no acute distress Head Head exam: Present atraumatic and normocephalic Eye Eye exam: Present EOMI and PERRL ENT ENT exam: Present mucous membranes moist, normal exam and normal external ear exam Neck Neck exam: Present normal inspection; Absent lymphadenopathy, tenderness and thyromegaly Respiratory Respiratory exam: Absent accessory muscle use, respiratory distress and wheezes Cardiovascular Cardiovascular exam: Present normal rate and rhythm; Absent JVD GI/Abdominal GI/Abdominal exam: Present normal bowel sounds and soft; Absent organomegaly and tenderness Rectal Rectal exam: Present deferred Extremities Exam Extremities exam: Present full ROM, normal capillary refill and normal inspection; Absent tenderness Neurological Exam Neurological exam: Present alert, CN II-XII intact and oriented X3; Absent motor sensory deficit Psychiatric Psychiatric exam: Present normal affect and normal mood; Absent anxious and depressed Skin Skin exam: Present dry and intact Discharge Data Data Completed and Pending Labs on day of discharge: Labs from last 24 hours 06/14/21 06/14/21 06:06 06:06 WBC 13.1 H RBC 3.08 L Hgb 10.0 L Hct 28.5 L MCV 92.5 MCH 32.5 MCHC 35.1 RDW 13.7 Plt Count 457 H MPV 9.9 Neut % (Auto) 80.4 H Lymph % (Auto) 13.7 L Sutter % (Auto) 4.7 Eos % (Auto) 0.8 Baso % (Auto) 0.4 Lymph # (Auto) 1.79 Sutter # (Auto) 0.61 Eos # (Auto) 0.10 Baso # (Auto) 0.05 Absolute Neutrophils 10.54 H Sodium 128 L Potassium 3.4 Chloride 98 Carbon Dioxide 21 L Anion Gap 9.0 BUN 11 Creatinine 0.4 L GFR Calculation 128 Glucose 93 Calcium 7.4 L Magnesium 2.5 Total Bilirubin 0.6 AST 83 H ALT 107 H Alkaline Phosphatase 69 Total Protein 5.5 L Albumin 1.5 L Globulin 4.0 H Albumin/Globulin Ratio 0.4 L Preliminary micro results at discharge 06/13/21 05:15 Blood Culture - Preliminary Blood Gram positive cocci 06/13/21 05:20 Blood Culture - Preliminary Blood Gram positive cocci Discharge Plan Patient/Caregiver Discharge Instructions Activity: increase activity as tolerated Diet: Regular Diet Prescriptions: No Action No Known Home Meds RF: 0 Follow Up Plan Follow up with: [place],PCP [Primary Care Provider] - Patient Disposition: Xfer Other Prognosis: Fair Rehab Potential: Fair I certify that the patient requires SNF services: No Overall status at discharge: patient is not back to baseline Discharge Orders: Discharge Order (Routine); Ordered 06/14/21 Ordered By: Sergio SKINNER VTE Deep Vein Thrombosis/Pulmonary Embolism Present on Admission: No
[2021-06-14] MEDS: SENNOSIDES 1 TABLET PO SCH (20:29)
--- NOTE | 2021-06-20 07:53 | EKG ---
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
== END 2021-06-14 21:06 | disposition other institution (70) | DRG 640 ==
LOC: ED 06:58 → MEDSUR 17:25
PROVIDERS: ADMIT Internal Medicine; ATTEND Internal Medicine